=== PATIENT | female | born 1955 | race African-American/Black ===

== ENCOUNTER → 2017-01-25 | Outpatient (CLI) | payer OTHER ==
[2015-02-26 15:00] VITALS: BP 144/65
[~2017-01-25] MED LIST: ALBU0.63 NEB; AMIT25TA PO; AMLO2.5T PO; AMLO5TAB4 PO; Benicar; CALC0.256 PO; CHOL10002 PO; IRON18TA PO; LEVO175T2 PO; LOSA1TAB16 PO; METH4TAB2 PO; OMEP-203 PO; OXYC-323 PO; [UNRECOGNIZED DRUG - OTHER]
--- NOTE | 2017-01-25 13:20 | KCIC ---
Bone mineral density exam History: Postmenopausal, loss of height, renal disease Comparison: None Findings: Bone mineral density examination utilizing DEXA was performed. Left hip bone mineral density of 1.215 g/cm2 corresponds with a T score 2.2, Z score 2.1. The bone mineral density of the lumbar spine was 1.746 g/cm2 which corresponds with a T-score of 6.4, Z score 7.2 . By World Congress on Osteoporosis criteria, a T score of 0 to-1 SD is considered to be within normal limits. A T score of -1 to -2.5 SD is considered osteopenia. A T score less than -2.5 SD is considered osteoporosis Impression: 1. There is normal bone density of the left hip and lumbar spine. Electronically signed by: Giovanny Plaza MD (01/25/2017 1:17 PM) [facility]-KCIC[facility]
--- NOTE | 2017-01-29 10:21 | KCIC ---
History: Routine Screening. Technique: Bilateral digital mammographic routine views were obtained with CAD - computer aided detection. Previous: None. Findings: Breast Tissue Density B :The breast tissue is composed of mixed fatty and fibroglandular tissue. There is an asymmetric density in the upper outer breasts bilaterally. There are no architectural distortion or suspicious microcalcifications. Recommendations: The patient should return for bilateral breast ultrasound. BI-RADS Category 0: Incomplete. Need additional imaging evaluation. The mammography staff will provide imaging followup orders and will contact the patient for followup. "Our facility is accredited by the [employer] Mammography Program." Electronically signed by: Victor Manuel Conner III, MD (01/29/2017 10:18 AM) [facility]
== END | disposition home or self-care (01) ==
LOC: KCIC DEXA 12:11
PROVIDERS: ATTEND Internal Medicine
DX: Z12.31 Encounter for screening mammogram for malignant neoplasm of breast (principal)
CPT/HCPCS: 77080; G0202; 77067

== ENCOUNTER 2017-04-19 15:48 | Inpatient (IN) | payer BC, OTHER ==
[~2017-04-19] VITALS: Ht 167.6 cm; Wt 110.2 kg
[2017-04-19] VITALS (7 sets, daily range): BP systolic 157–189; BP diastolic 69–94
[~2017-04-19 15:48] MED LIST changes: -LOSA1TAB16 PO; +LOSA1TAB19 PO
--- NOTE | 2017-04-19 15:54 | PHYS DOC ---
Past Medical History Past Medical History: Hypertension, Renal Disease, Seizure Past Surgical History: Cholecystectomy, Other Additional Past Surgical Histo: Thyroidectomy Alcohol Use: None Drug Use: None Adult General Chief Complaint Chief Complaint: seizure HPI HPI Patient is a 61 year old female who presents with seizure. According to daughter witnessed 5 minutes where her arms were flexed and her legs are straight and she was making gurgling noises. EMS arrived and noted she was postictal and not seizing and she states she is on antiseizure meds. She states her last seizure was 3 years ago. According to family she did not feel well earlier today but she states she feels completely fine now. She can't explain what didn't feel well earlier. Review of Systems Review of Systems Constitutional: Denies fever or chills [] Eyes: Denies change in visual acuity, redness, or eye pain [] HENT: Denies nasal congestion or sore throat [] Respiratory: Denies cough or shortness of breath [] Cardiovascular: No additional information not addressed in HPI [] GI: Denies abdominal pain, nausea, vomiting, bloody stools or diarrhea [] : Denies dysuria or hematuria [] Musculoskeletal: Denies back pain or joint pain [] Integument: Denies rash or skin lesions [] Neurologic: Denies headache, focal weakness or sensory changes [] Endocrine: Denies polyuria or polydipsia [] All other systems were reviewed and found to be within normal limits, except as documented in this note. Current Medications Current Medications Current Medications Medications (Trade) Dose Ordered Sig/Marlon Start Time Stop Time Status Last Admin Dose Admin Calcium Gluconate (Calcium Gluconate) 1,000 mg 1X ONCE 04/19/17 18:45 04/19/17 18:46 DC 04/19/17 18:44 1,000 MG Sodium Chloride 1,000 ml @ 1,000 mls/hr 1X ONCE 04/19/17 16:45 04/19/17 17:44 Cancel Allergies Allergies Allergies Coded Allergies Type Severity Reaction Last Updated Verified Penicillins Allergy Intermediate Hives 02/10/15 Yes cinnamon Allergy Intermediate 02/08/15 Yes hydrocodone Allergy Intermediate Hives 02/10/15 Yes Physical Exam Physical Exam Constitutional: Well developed, well nourished, no acute distress, non-toxic appearance. [] HENT: Normocephalic, atraumatic, bilateral external ears normal, oropharynx moist, no oral exudates, nose normal. [] Eyes: PERRLA, EOMI, conjunctiva normal, no discharge. [] Neck: Normal range of motion, no tenderness, supple, no stridor. [] Cardiovascular:Heart rate regular rhythm, no murmur [] Lungs & Thorax: Bilateral breath sounds clear to auscultation [] Abdomen: Bowel sounds normal, soft, no tenderness, no masses, no pulsatile masses. [] Skin: Warm, dry, no erythema, no rash. [] Back: No tenderness, no CVA tenderness. [] Extremities: No tenderness, no cyanosis, no clubbing, ROM intact, no edema. [] Neurologic: Alert and oriented X 3, normal motor function, normal sensory function, no focal deficits noted. [] Psychologic: Affect normal, judgement normal, mood normal. [] Current Patient Data Vital Signs Vital Signs Date Time Temp Pulse Resp B/P (MAP) Pulse Ox O2 Delivery O2 Flow Rate FiO2 04/19/17 15:48 98.2 99 20 166/76 (106) 93 Room Air 98.2 Lab Values Laboratory Tests Test 04/19/17 16:20 04/19/17 17:24 04/19/17 17:25 White Blood Count 13.4 x10^3/uL (4.0-11.0) H Red Blood Count 3.92 x10^6/uL (3.50-5.40) Hemoglobin 10.2 g/dL (12.0-15.5) L Hematocrit 32.1 % (36.0-47.0) L Mean Corpuscular Volume 82 fL (79-100) Mean Corpuscular Hemoglobin 26 pg (25-35) Mean Corpuscular Hemoglobin Concent 32 g/dL (31-37) Red Cell Distribution Width 15.1 % (11.5-14.5) H Platelet Count 314 x10^3/uL (140-400) Neutrophils (%) (Auto) 85 % (31-73) H Lymphocytes (%) (Auto) 10 % (24-48) L Monocytes (%) (Auto) 4 % (0-9) Eosinophils (%) (Auto) 1 % (0-3) Basophils (%) (Auto) 1 % (0-3) Neutrophils # (Auto) 11.4 x10^3uL (1.8-7.7) H Lymphocytes # (Auto) 1.3 x10^3/uL (1.0-4.8) Monocytes # (Auto) 0.6 x10^3/uL (0.0-1.1) Eosinophils # (Auto) 0.1 x10^3/uL (0.0-0.7) Basophils # (Auto) 0.1 x10^3/uL (0.0-0.2) Prothrombin Time 16.6 SEC (11.7-14.0) H Prothrombin Time INR 1.4 (0.8-1.1) H PTT 35 SEC (24-38) Sodium Level 140 mmol/L (136-145) Potassium Level 3.7 mmol/L (3.5-5.1) Chloride Level 99 mmol/L (98-107) Carbon Dioxide Level 21 mmol/L (21-32) Anion Gap 20 (6-14) H Blood Urea Nitrogen 31 mg/dL (7-20) H Creatinine 2.1 mg/dL (0.6-1.0) H Estimated GFR (Cockcroft-Gault) 28.9 Glucose Level 100 mg/dL (70-99) H Calcium Level < 5.0 mg/dL (8.5-10.1) *L < 5.0 mg/dL (8.5-10.1) *L Total Bilirubin 0.6 mg/dL (0.2-1.0) Direct Bilirubin 0.2 mg/dL (0.0-0.2) Aspartate Amino Transferase (AST) 130 U/L (15-37) H Alanine Aminotransferase (ALT) 78 U/L (14-59) H Alkaline Phosphatase 93 U/L (46-116) Total Protein 8.8 g/dL (6.4-8.2) H Albumin 3.1 g/dL (3.4-5.0) L Lactic Acid Level 2.3 mmol/L (0.4-2.0) H Laboratory Tests 04/19/17 16:20 Laboratory Tests 04/19/17 16:20 EKG EKG [] Radiology/Procedures Radiology/Procedures [facility] [address] [place] [address] IMAGING REPORT Signed PATIENT: EMEKA COOK: [id number] : 1955 LOCATION: ER AGE: 61 SEX: F EXAM STATUS: REG ER ORD. PHYSICIAN: KVNG GOODE MD REASON: new onset seizure PROCEDURE: CT HEAD WO CONTRAST CT Head W/O Contrast: History: WITNESSED SEIZURE X 5 MIN H/O SEIZURE PREV SENT NO CONTRAST Comparison: December 18, 2009 Axial images were obtained without contrast. There is considerable symmetrical intraparenchymal calcifications within the cerebellum and the cerebrum diffusely. This was seen previously and is unchanged. The valera and white matter appears normal and symmetrical in volume for the patients age. There is no mass effect, extraaxial fluid collections or hydrocephalus. There is no gross bleed. There is no focal loss of valera-white matter distinction to suggest acute ischemia, i.e. stroke. Impression: Considerable calcifications bilaterally seen previously. This could be secondary to a metabolic abnormality or prior toxic injury. A congenital abnormality is possible. This has progressed since the prior study. There is no acute findings. RS Compliance Statement: One or more of the following individualized dose reduction techniques were utilized for this examination: 1. Automated exposure control 2. Adjustment of the mA and/or kV according to patient size 3. Use of iterative reconstruction technique Electronically signed by: Bhumi Cueva III, MD (04/19/2017 6:39 PM) [facility] DICTATED and SIGNED BY: BHUMI CUEVA III, MD DATE: 04/19/17 1835 CC: KVNG GOODE MD; SALVADOR WAGONER MD ~ Impressions: Seizure Critical hypocalcemia Course & Med Decision Making Course & Med Decision Making Pertinent Labs and Imaging studies reviewed. (See chart for details) Patient has no complaints, calcium is less than 5. It is being replaced with 2 A of calcium gluconate. She she did receive 1 L normal saline secondary to her elevated lactic acid. She's being admitted the ICU for close monitoring and calcium replacement. Dr. Call excepts the patient. Dragon Disclaimer Dragon Disclaimer This electronic medical record was generated, in whole or in part, using a voice recognition dictation system. Departure Departure Impression: Primary Impression: Hypocalcemia Disposition: ADMITTED INPATIENT Admitting Physician: Ciro Call Condition: STABLE Referrals: SALVADOR WAGONER MD (PCP) KVNG GOODE MD Apr 19, 2017 15:54
[2017-04-19] MEDS ORDERED: IV NORMAL SALINE 1000ML BAG 1,000 ML IV ONE ×3 (16:00→16:45)
[2017-04-19 16:27] LABS: BASO # 0.1 x10^3/uL (0.0-0.2); BASO % 1 % (0-3); EOS % 1 % (0-3); HEMATOCRIT 32.1 % (36.0-47.0); HEMOGLOBIN 10.2 g/dL (12.0-15.5); LYMPH # 1.3 x10^3/uL (1.0-4.8); LYMPH % 10 % (24-48); MEAN CORPUSCULAR HEMOGLOBIN 26 pg (25-35); MEAN CORPUSCULAR HGB CONC 32 g/dL (31-37); MEAN CORPUSCULAR VOLUME 82 fL (79-100); MONO % 4 % (0-9); NEUT % 85 % (31-73); PLATELET COUNT 314 x10^3/uL (140-400); RED BLOOD COUNT 3.92 x10^6/uL (3.50-5.40); RED CELL DISTRIBUTION WIDTH 15.1 % (11.5-14.5); WHITE BLOOD COUNT 13.4 x10^3/uL (4.0-11.0)
[2017-04-19 16:35] LABS: INR 1.4 (0.8-1.1); PROTHROMBIN TIME PATIENT 16.6 SEC (11.7-14.0)
[2017-04-19 17:09] LABS: ALBUMIN 3.1 g/dL (3.4-5.0); ALK PHOS 93 U/L (46-116); ALT (SGPT) 78 U/L (14-59); ANION GAP 20 (6-14); AST (SGOT) 130 U/L (15-37); BLOOD UREA NITROGEN 31 mg/dL (7-20); CARBON DIOXIDE 21 mmol/L (21-32); CHLORIDE 99 mmol/L (98-107); CREATININE 2.1 mg/dL (0.6-1.0); DIRECT BILIRUBIN 0.2 mg/dL (0.0-0.2); GFR 28.9; GLUCOSE 100 mg/dL (70-99); POTASSIUM 3.7 mmol/L (3.5-5.1); SODIUM 140 mmol/L (136-145); TOTAL BILIRUBIN 0.6 mg/dL (0.2-1.0); TOTAL PROTEIN 8.8 g/dL (6.4-8.2)
[2017-04-19 17:15] LABS: CALCIUM < 5.0 mg/dL (8.5-10.1)
--- NOTE | 2017-04-19 18:43 | RAD ---
CT Head W/O Contrast: History: WITNESSED SEIZURE X 5 MIN H/O SEIZURE PREV SENT NO CONTRAST Comparison: December 18, 2009 Axial images were obtained without contrast. There is considerable symmetrical intraparenchymal calcifications within the cerebellum and the cerebrum diffusely. This was seen previously and is unchanged. The valera and white matter appears normal and symmetrical in volume for the patients age. There is no mass effect, extraaxial fluid collections or hydrocephalus. There is no gross bleed. There is no focal loss of valera-white matter distinction to suggest acute ischemia, i.e. stroke. Impression: Considerable calcifications bilaterally seen previously. This could be secondary to a metabolic abnormality or prior toxic injury. A congenital abnormality is possible. This has progressed since the prior study. There is no acute findings. PQRS Compliance Statement: One or more of the following individualized dose reduction techniques were utilized for this examination: 1. Automated exposure control 2. Adjustment of the mA and/or kV according to patient size 3. Use of iterative reconstruction technique Electronically signed by: Victor Manuel Conner III, MD (04/19/2017 6:39 PM) [facility]
[2017-04-19] MEDS ORDERED: CALCIUM GLUCONATE 1,000 MG/10 ML VIAL. IV ONE (18:45)
[2017-04-19] MEDS ORDERED: CALCIUM GLUCONATE 1,000 MG/10 ML VIAL. IVP ONE (18:45)
[2017-04-19] MEDS ORDERED: ONDANSETRON PF 4 MG/2 ML VIAL. IV PRN (19:30)
[2017-04-19] MEDS ORDERED: hydrALAZINE 20 MG/ML VIAL. IVP PRN ×2 (21:15)
[2017-04-20] VITALS (20 sets, daily range): BP systolic 134–189; BP diastolic 61–86
[2017-04-20 05:36] LABS: BASO % 0 % (0-3); EOS % 3 % (0-3); HEMOGLOBIN 10.1 g/dL (12.0-15.5); LYMPH # 1.4 x10^3/uL (1.0-4.8); LYMPH % 11 % (24-48); MEAN CORPUSCULAR HEMOGLOBIN 26 pg (25-35); MEAN CORPUSCULAR HGB CONC 33 g/dL (31-37); MEAN CORPUSCULAR VOLUME 80 fL (79-100); MONO % 7 % (0-9); NEUT % 80 % (31-73); PLATELET COUNT 302 x10^3/uL (140-400); RED BLOOD COUNT 3.86 x10^6/uL (3.50-5.40); RED CELL DISTRIBUTION WIDTH 14.7 % (11.5-14.5)
[2017-04-20 06:37] LABS: ALBUMIN 2.6 g/dL (3.4-5.0); ALBUMIN/GLOBULIN RATIO 0.5 (1.0-1.7); ALK PHOS 78 U/L (46-116); ALT (SGPT) 66 U/L (14-59); ANION GAP 15 (6-14); AST (SGOT) 89 U/L (15-37); BLOOD UREA NITROGEN 29 mg/dL (7-20); BUN/CREATININE RATIO 18 (6-20); CARBON DIOXIDE 23 mmol/L (21-32); CHLORIDE 104 mmol/L (98-107); CREATININE 1.6 mg/dL (0.6-1.0); GFR 39.5; GLUCOSE 95 mg/dL (70-99); MAGNESIUM 2.2 mg/dL (1.8-2.4); POTASSIUM 3.6 mmol/L (3.5-5.1); SODIUM 142 mmol/L (136-145); TOTAL BILIRUBIN 0.4 mg/dL (0.2-1.0); TOTAL PROTEIN 7.9 g/dL (6.4-8.2)
[2017-04-20 06:42] LABS: CALCIUM < 5.0 mg/dL (8.5-10.1)
[2017-04-20] MEDS ORDERED: INFLUENZA VAX SCREEN BY RX. MC PRN (06:45)
--- NOTE | 2017-04-20 08:36 | PDOC1 ---
JANEL PERALTA PHARMACOMETRICIAN 04/20/17 0836: HISTORY AND PHYSICAL Chief Complaint Chief Complaint This 61 year old female has been admitted with a chief complaint of recurrent seizure activity. She has a h/o seizures in the past and is currently not taking antiseizure medication. The last seizure was approximately 3 years ago. Her daughter witnessed the seizure and it lasted approximately five minutes. Arms were flexed, legs straight, and gurgling sounds was noted by the daughter. EMS was called and on arrival she was post-ictal. She was transported to the ED. Abnormal labs: WBC 13.14, Hgb 10.2, BUN 31, Cr 2.1, LA 2.3, Ca <5, AST 130, ALT78, and Alb 3.1. She has recieved 2 amps of Calcium gluconate since admission and her Ca this morning remains <5.0. Nephrology has been consulted. She is admitted to the ICU. Daughter reports hypocalcemia is chronic medical problem. She had hypocalcemia approx 5 years ago and required IV Ca replacement infusion. Problem List Problems Medical Problems: (1) Hypocalcemia Status: Acute Past Medical History Cardiovascular: HTN Pulmonary: Other CENTRAL NERVOUS SYSTEM: Seizure GI: GERD Heme/Onc: Anemia NOS (CKD ) Musculoskeletal: Osteoarthritis Renal/: Chronic renal insuff (CKD IV ) Endocrine: Hypothyroidism, Other (Vitamin D deficiency, hypocalcemia ) Past Surgical History Past Surgical History: Cholecystectomy, Other (thyoidectomy ) Past Family History Family History: Coronary Artery Disease Past Social History PSH , supportive family. No h/o tobacco, ETOH or illicit drugs Review of Symptoms Review of Symptoms A 14 point ROS was completed with the following noted as positive: per HPI Other systems reviewed and negative. Medications Medications reviewed and reconciled. Allergy Allergies Coded Allergies Type Severity Reaction Last Updated Verified Penicillins Allergy Intermediate Hives 02/10/15 Yes cinnamon Allergy Intermediate 02/08/15 Yes hydrocodone Allergy Intermediate Hives 02/10/15 Yes Physical Exam Physical Exam General appearance - alert,well appearing, and in no distress and oriented to person, place, and time Mental Status - alert, oriented to person, place, and time, affect appropriate to mood Head - normal Chest - clear to auscultation, no wheezes, rales or rhonchi, symmetric air entry Heart - S1 and S2 normal Abdomen - soft, nontender, nondistended, no masses or organomegaly Neurological - alert and oriented Musculoskeletal - no muscular tenderness noted Extremities - no pedal edema Skin - warm and dry VTE Prophylaxis Ordered VTE Prophylaxis Devices: Yes VTE Pharmacological Prophylaxi: No Assessment Labs Laboratory Tests Test 04/19/17 16:20 04/19/17 17:24 04/19/17 17:25 04/20/17 03:45 White Blood Count 13.4 x10^3/uL (4.0-11.0) 13.0 x10^3/uL (4.0-11.0) Red Blood Count 3.92 x10^6/uL (3.50-5.40) 3.86 x10^6/uL (3.50-5.40) Hemoglobin 10.2 g/dL (12.0-15.5) 10.1 g/dL (12.0-15.5) Hematocrit 32.1 % (36.0-47.0) 31.0 % (36.0-47.0) Mean Corpuscular Volume 82 fL (79-100) 80 fL (79-100) Mean Corpuscular Hemoglobin 26 pg (25-35) 26 pg (25-35) Mean Corpuscular Hemoglobin Concent 32 g/dL (31-37) 33 g/dL (31-37) Red Cell Distribution Width 15.1 % (11.5-14.5) 14.7 % (11.5-14.5) Platelet Count 314 x10^3/uL (140-400) 302 x10^3/uL (140-400) Neutrophils (%) (Auto) 85 % (31-73) 80 % (31-73) Lymphocytes (%) (Auto) 10 % (24-48) 11 % (24-48) Monocytes (%) (Auto) 4 % (0-9) 7 % (0-9) Eosinophils (%) (Auto) 1 % (0-3) 3 % (0-3) Basophils (%) (Auto) 1 % (0-3) 0 % (0-3) Neutrophils # (Auto) 11.4 x10^3uL (1.8-7.7) 10.4 x10^3uL (1.8-7.7) Lymphocytes # (Auto) 1.3 x10^3/uL (1.0-4.8) 1.4 x10^3/uL (1.0-4.8) Monocytes # (Auto) 0.6 x10^3/uL (0.0-1.1) 0.8 x10^3/uL (0.0-1.1) Eosinophils # (Auto) 0.1 x10^3/uL (0.0-0.7) 0.3 x10^3/uL (0.0-0.7) Basophils # (Auto) 0.1 x10^3/uL (0.0-0.2) 0.0 x10^3/uL (0.0-0.2) Prothrombin Time 16.6 SEC (11.7-14.0) Prothromb Time International Ratio 1.4 (0.8-1.1) Activated Partial Thromboplast Time 35 SEC (24-38) Sodium Level 140 mmol/L (136-145) Potassium Level 3.7 mmol/L (3.5-5.1) Chloride Level 99 mmol/L (98-107) Carbon Dioxide Level 21 mmol/L (21-32) Anion Gap 20 (6-14) Blood Urea Nitrogen 31 mg/dL (7-20) Creatinine 2.1 mg/dL (0.6-1.0) Estimated GFR (Cockcroft-Gault) 28.9 Glucose Level 100 mg/dL (70-99) Calcium Level < 5.0 mg/dL (8.5-10.1) < 5.0 mg/dL (8.5-10.1) Total Bilirubin 0.6 mg/dL (0.2-1.0) Direct Bilirubin 0.2 mg/dL (0.0-0.2) Aspartate Amino Transf (AST/SGOT) 130 U/L (15-37) Alanine Aminotransferase (ALT/SGPT) 78 U/L (14-59) Alkaline Phosphatase 93 U/L (46-116) Total Protein 8.8 g/dL (6.4-8.2) Albumin 3.1 g/dL (3.4-5.0) Lactic Acid Level 2.3 mmol/L (0.4-2.0) Test 04/20/17 04:30 Sodium Level 142 mmol/L (136-145) Potassium Level 3.6 mmol/L (3.5-5.1) Chloride Level 104 mmol/L (98-107) Carbon Dioxide Level 23 mmol/L (21-32) Anion Gap 15 (6-14) Blood Urea Nitrogen 29 mg/dL (7-20) Creatinine 1.6 mg/dL (0.6-1.0) Estimated GFR (Cockcroft-Gault) 39.5 BUN/Creatinine Ratio 18 (6-20) Glucose Level 95 mg/dL (70-99) Calcium Level < 5.0 mg/dL (8.5-10.1) Magnesium Level 2.2 mg/dL (1.8-2.4) Total Bilirubin 0.4 mg/dL (0.2-1.0) Aspartate Amino Transf (AST/SGOT) 89 U/L (15-37) Alanine Aminotransferase (ALT/SGPT) 66 U/L (14-59) Alkaline Phosphatase 78 U/L (46-116) Total Protein 7.9 g/dL (6.4-8.2) Albumin 2.6 g/dL (3.4-5.0) Albumin/Globulin Ratio 0.5 (1.0-1.7) Laboratory Tests Test 04/19/17 16:20 04/19/17 17:24 04/19/17 17:25 04/20/17 03:45 White Blood Count 13.4 x10^3/uL (4.0-11.0) 13.0 x10^3/uL (4.0-11.0) Red Blood Count 3.92 x10^6/uL (3.50-5.40) 3.86 x10^6/uL (3.50-5.40) Hemoglobin 10.2 g/dL (12.0-15.5) 10.1 g/dL (12.0-15.5) Hematocrit 32.1 % (36.0-47.0) 31.0 % (36.0-47.0) Mean Corpuscular Volume 82 fL (79-100) 80 fL (79-100) Mean Corpuscular Hemoglobin 26 pg (25-35) 26 pg (25-35) Mean Corpuscular Hemoglobin Concent 32 g/dL (31-37) 33 g/dL (31-37) Red Cell Distribution Width 15.1 % (11.5-14.5) 14.7 % (11.5-14.5) Platelet Count 314 x10^3/uL (140-400) 302 x10^3/uL (140-400) Neutrophils (%) (Auto) 85 % (31-73) 80 % (31-73) Lymphocytes (%) (Auto) 10 % (24-48) 11 % (24-48) Monocytes (%) (Auto) 4 % (0-9) 7 % (0-9) Eosinophils (%) (Auto) 1 % (0-3) 3 % (0-3) Basophils (%) (Auto) 1 % (0-3) 0 % (0-3) Neutrophils # (Auto) 11.4 x10^3uL (1.8-7.7) 10.4 x10^3uL (1.8-7.7) Lymphocytes # (Auto) 1.3 x10^3/uL (1.0-4.8) 1.4 x10^3/uL (1.0-4.8) Monocytes # (Auto) 0.6 x10^3/uL (0.0-1.1) 0.8 x10^3/uL (0.0-1.1) Eosinophils # (Auto) 0.1 x10^3/uL (0.0-0.7) 0.3 x10^3/uL (0.0-0.7) Basophils # (Auto) 0.1 x10^3/uL (0.0-0.2) 0.0 x10^3/uL (0.0-0.2) Prothrombin Time 16.6 SEC (11.7-14.0) Prothromb Time International Ratio 1.4 (0.8-1.1) Activated Partial Thromboplast Time 35 SEC (24-38) Sodium Level 140 mmol/L (136-145) Potassium Level 3.7 mmol/L (3.5-5.1) Chloride Level 99 mmol/L (98-107) Carbon Dioxide Level 21 mmol/L (21-32) Anion Gap 20 (6-14) Blood Urea Nitrogen 31 mg/dL (7-20) Creatinine 2.1 mg/dL (0.6-1.0) Estimated GFR (Cockcroft-Gault) 28.9 Glucose Level 100 mg/dL (70-99) Calcium Level < 5.0 mg/dL (8.5-10.1) < 5.0 mg/dL (8.5-10.1) Total Bilirubin 0.6 mg/dL (0.2-1.0) Direct Bilirubin 0.2 mg/dL (0.0-0.2) Aspartate Amino Transf (AST/SGOT) 130 U/L (15-37) Alanine Aminotransferase (ALT/SGPT) 78 U/L (14-59) Alkaline Phosphatase 93 U/L (46-116) Total Protein 8.8 g/dL (6.4-8.2) Albumin 3.1 g/dL (3.4-5.0) Lactic Acid Level 2.3 mmol/L (0.4-2.0) Test 04/20/17 04:30 Sodium Level 142 mmol/L (136-145) Potassium Level 3.6 mmol/L (3.5-5.1) Chloride Level 104 mmol/L (98-107) Carbon Dioxide Level 23 mmol/L (21-32) Anion Gap 15 (6-14) Blood Urea Nitrogen 29 mg/dL (7-20) Creatinine 1.6 mg/dL (0.6-1.0) Estimated GFR (Cockcroft-Gault) 39.5 BUN/Creatinine Ratio 18 (6-20) Glucose Level 95 mg/dL (70-99) Calcium Level < 5.0 mg/dL (8.5-10.1) Magnesium Level 2.2 mg/dL (1.8-2.4) Total Bilirubin 0.4 mg/dL (0.2-1.0) Aspartate Amino Transf (AST/SGOT) 89 U/L (15-37) Alanine Aminotransferase (ALT/SGPT) 66 U/L (14-59) Alkaline Phosphatase 78 U/L (46-116) Total Protein 7.9 g/dL (6.4-8.2) Albumin 2.6 g/dL (3.4-5.0) Albumin/Globulin Ratio 0.5 (1.0-1.7) Plan Plan FINAL DIAGNOSIS: 1. seizures recurrent 2. acute hypocalcemia with h/o chronic hypocalcemia 3. leukocytosis 4. anemia CKD 5. CKD IV 6. HTN 7. hypothyroid post thyroidectomy 8. GERD 9. moderate chronic PCL malnutrition 10. transaminitis 11. Vitamin D def PLAN: seizure - hypocalcemia - monitor hypocalcemia - Ca gluconate 2gm total last night - nephrology consulted - continues <5.0 - labs pending - hypothyroid with h/o thyroidectomy - Synthroid resume - check lab leukocytosis - check UA - Admit WBC 13.4 today 13.0 anemia - admit Hgb 10.2 today 10.1 CKD IV - Admit B/C 31/2.1 today 29/1.6 IVF in ED transaminitis - Abmit AST 130 today 89 Admit 78 today 66- improving For more details regarding further plans, please refer to the orders. CHRISTIAN MORGAN MD 04/20/17 1007: HISTORY AND PHYSICAL Plan Plan Patient says that hypocalcemia gets aggravated when she has diarrhea. She has myoclonus.Give one more dose of Calcium Gluconate. The patient was seen and examined by me. Chart reviewed and plan of care formulated. Discussed with, reviewed and agree with DONOR RECRUITMENT MANAGER's notes, plan of care and orders with modifications as necessary. For more details regarding further plans, please refer to the orders. JANEL PERALTA APRN Apr 20, 2017 08:36 CHRISTIAN MORGAN MD Apr 20, 2017 10:07
[2017-04-20] MEDS ORDERED: oxyCODONE/APAP 5/325 1 TAB TABLET PO PRN (08:45)
[2017-04-20] MEDS: LOSARTAN POTASSIUM 50 MG TABLET. PO SCH (09:00)
[2017-04-20] MEDS: LEVOTHYROXINE 175 MCG TABLET PO SCH (09:00)
[2017-04-20] MEDS ORDERED: FLU VACC QS2017-18 (36MOS+)/PF 0.5 ML SYRINGE. VAX IM ONE (09:00)
[2017-04-20] MEDS: CHOLECALCIFEROL (VITAMIN D3) 1,000 UNIT TABLET PO SCH (09:00)
[2017-04-20] MEDS: CALCITRIOL 0.25 MCG CAPSULE. PO SCH ×2 (09:00→21:00)
[2017-04-20] MEDS: hydroCHLOROthiazide 12.5 MG CAPSULE PO SCH (09:00)
[2017-04-20] MEDS: PANTOPRAZOLE 40 MG TABLET.DR. PO SCH (09:00)
[2017-04-20] MEDS: ALBUTEROL SULFATE 2.5 MG/3 ML NEBU. NEB SCH ×2 (09:00→12:22)
[2017-04-20] MEDS: amLODIPine BESYLATE 5 MG TABLET PO SCH (09:00)
--- NOTE | 2017-04-20 09:07 | EKG ---
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
[2017-04-20] MEDS ORDERED: CALCIUM GLUCONATE 100 MG/ML VIAL for DOSE IN MG. IV ONE (09:15)
[2017-04-20 10:29] LABS: FREE T4 1.28 ng/dL (0.76-1.46)
[2017-04-20] MEDS ORDERED: CALCIUM GLUCONATE IV ONE (12:30)
[2017-04-20] MEDS ORDERED: DEXTROSE 5% IV ONE (12:30)
[2017-04-20] MEDS ORDERED: CALCIUM GLUCONATE 1,000 MG/10 ML VIAL. IVP ONE (12:30)
--- NOTE | 2017-04-20 13:22 | PDOC2 ---
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 Current Medications Sodium Chloride 1,000 ml @ 1,000 mls/hr 1X ONCE IV Last administered on 17:19; Start 04/19/17 at 16:00; Stop 04/19/17 at 16:59; Status DC Sodium Chloride 1,000 ml @ 1,000 mls/hr 1X ONCE IV ; Start 04/19/17 at 16:45; Stop 04/19/17 at 17:44; Status Cancel Sodium Chloride 1,000 ml @ 1,000 mls/hr 1X ONCE IV ; Start 04/19/17 at 16:45; Stop 04/19/17 at 17:44; Status Cancel Calcium Gluconate (Calcium Gluconate) 1,000 mg 1X ONCE IV Last administered on 04/19/17 19:27; Start 04/19/17 at 18:45; Stop 04/19/17 at 18:46; Status DC Calcium Gluconate (Calcium Gluconate) 1,000 mg 1X ONCE IVP Last administered on 04/19/17 18:44; Start 04/19/17 at 18:45; Stop 04/19/17 at 18:46; Status DC Ondansetron HCl (Zofran) 4 mg PRN Q8HRS PRN IV NAUSEA/VOMITING; Start 04/19/17 at 19:30; Stop 04/20/17 at 19:29 Hydralazine HCl (Apresoline Inj) 10 mg PRN Q4HRS PRN IVP ELEVATED BP, SEE COMMENTS; Start 04/19/17 at 21:15 Hydralazine HCl (Apresoline Inj) 20 mg PRN Q4HRS PRN IVP ELEVATED BP, SEE COMMENTS Last administered on 04/19/17 23:26; Start 04/19/17 at 21:15 Influenza Virus Vaccine Quadrival (Fluarix Quad [id number] Syringe) 0.5 ml ONCE ONCE VAX IM ; Start 04/20/17 at 09:00; Stop 04/20/17 at 09:01; Status DC Info (Do NOT chart on this placeholder) 1 each PRN 1X PRN MC SEE COMMENTS; Start 04/20/17 at 06:45; Status Cancel Amlodipine Besylate (Norvasc) 5 mg DAILY PO ; Start 04/20/17 at 09:00 Calcitriol (Rocaltrol) 0.25 mcg BID PO ; Start 04/20/17 at 09:00 Vitamin D (Vitamin D3) 1,000 unit DAILY PO ; Start 04/20/17 at 09:00 Levothyroxine Sodium (Synthroid) 175 mcg DAILYAC PO ; Start 04/20/17 at 09:00 Oxycodone/ Acetaminophen (Percocet 5/325) 1 tab PRN QID PRN PO PAIN; Start 04/20/17 at 08:45 Albuterol Sulfate (Ventolin Neb Soln) 2.5 mg RTQID NEB Last administered on 12:22; Start 04/20/17 at 09:00 Losartan Potassium (Cozaar) 50 mg DAILY PO ; Start 04/20/17 at 09:00 Pantoprazole Sodium (Protonix) 40 mg DAILYAC PO ; Start 04/20/17 at 09:00 Hydrochlorothiazide (Microzide) 12.5 mg DAILY PO ; Start 04/20/17 at 09:00 Calcium Gluconate (Calcium Gluconate) 1,000 mg 1X ONCE IV Last administered on 04/20/17 10:23; Start 04/20/17 at 09:15; Stop 04/20/17 at 09:16; Status DC Calcium Gluconate 09164 mg/Dextrose 1,100 ml @ 100 mls/hr Q11H ONCE IV Last administered on 04/20/17 13:14; Start 04/20/17 at 12:30; Stop 04/20/17 at 23:29 Calcium Gluconate (Calcium Gluconate) 2,000 mg 1X ONCE IVP Last administered on 04/20/17t 13:13; Start 04/20/17 at 12:30; Stop 04/20/17 at 12:31; Status DC Active Scripts Active Percocet 5-325 Mg Tablet (Oxycodone/Acetaminophen) 1 Each Tablet 1 Tab PO QID PRN Norvasc (Amlodipine Besylate) 5 Mg Tablet 5 Mg PO DAILY Reported Albuterol Sulfate Neb Soln (Albuterol Sulfate) 0.63 Mg/3 Ml Vial.neb 1 Vial NEB QID LAST DOSE GIVEN: DATE: Today TIME: 3:30 pm NEXT DOSE DUE: DATE: Today TIME: after 9:30pm [[facility]] [[facility]] Iron 18 Mg Tablet 18 Mg PO LAST DOSE GIVEN: DATE: dose of Ferrous Sulfate 142mg given today NEXT DOSE DUE: DATE: resume tomorrow Vitamin D (Cholecalciferol (Vitamin D3)) 1,000 Unit Tablet 1,000 Unit PO not given on this admission continue as previously instructed Omeprazole Magnesium 20 Mg Capsule.dr 20 Mg PO Substituted Protonix for this medication resume tomorrow as previously directed Rocaltrol (Calcitriol) 0.25 Mcg Capsule 0.25 Mcg PO BID LAST DOSE GIVEN: DATE: 02.26.2015 TIME: 08:30 am NEXT DOSE DUE: DATE: ton Losartan-Hctz 50-12.5 Mg Tab (Losartan/Hydrochlorothiazide) 1 Each Tablet 1 Each PO DAILY LAST DOSE GIVEN: this morning NEXT DOSE DUE: tomorrow morning Synthroid (Levothyroxine Sodium) 175 Mcg Tablet 175 Mcg PO DAILYAC LAST DOSE GIVEN: This am NEXT DOSE DUE: tomorrow morning Allergies Allergies: Coded Allergies: Penicillins (Verified Allergy, Intermediate, Hives, 02/10/15) cinnamon (Verified Allergy, Intermediate, 02/08/15) hydrocodone (Verified Allergy, Intermediate, Hives, 02/10/15) TAKES PERCOCET ROS Review of System GEN: no Fevers no Chills EYES: no new Visual Complaints ENT: no EN Drainage no Hearing deficiets CVS: no Orthopnea no CP RESP: no SOB no HUSSEIN GI: no Nausea no Vomiting + Diarrhea : no Dysuria no Urgency HEME: no easy bruising no Palp Ly Nodes NEURO no Focal Weakness + Sz + Tingling and numbness (in the past) PSYCH: no Suicidal Ideation no Depression SKIN: no Rashes ENDO: no Polyuria or Polydipsia o Hot/Cold Intolerance MU SK: occ Arthraigia min Myalgia after Sz Physical Exam Physical Exam General Appearance: Awake Alert Oriented x 3 In no Distress Eyes: VIsion Unchanged Conjunctiva Normal EN: No EN Drainage Mucous Memb. Neck: no JVD no JVP Supple no Thyromegaly CVS: S1 S2 ? Murmur No Gallop No Rub no Edema Resp: no Rales no Rhonchi no Acc. Muscle use GI: BS +ve NO Bruit Non Tender Non Distended : no CVA tenderness; on Suprapubic Tenderness SKIN: no Rashes Breast Exam deferred Mu.Sk: Adequate ROM no Muscle Atrophy Heme: Unable to palpate Obvious LAD no Splenomegaly NEURO: Good Strength and Tone Cranial Nerves II - XII grossly intact Psych: not Depressed no Active hallucination Vital Signs Vital Signs Date Time Temp Pulse Resp B/P (MAP) Pulse Ox O2 Delivery O2 Flow Rate FiO2 04/20/17 12:26 99 Room Air 04/20/17 06:00 70 19 148/69 (95) 04/20/17 04:00 98.6 98.6 Assessment & Plan CKD III - creat 1.7-2.0 at baseline. Current FLuid and E-lyte status does not necessitate emergent need for Dialysis. HypoCalcemia - not correcting with IV Mitchell boluses alone so will start gtt for now. restart Home meds and reval . Mag is OK HypoParathyroidism (presumably asso with Thyroidectomy) ^ed Lactic ACid - recheck Levels HypoALbuminemia - check for proteinruia Anemai - check [place], may need EPO too Discussed Plan of Care and prognosis etc. at length with family. Labs Labs Laboratory Tests Test 04/19/17 16:20 04/19/17 17:24 04/19/17 17:25 04/20/17 03:45 White Blood Count 13.4 x10^3/uL (4.0-11.0) 13.0 x10^3/uL (4.0-11.0) Red Blood Count 3.92 x10^6/uL (3.50-5.40) 3.86 x10^6/uL (3.50-5.40) Hemoglobin 10.2 g/dL (12.0-15.5) 10.1 g/dL (12.0-15.5) Hematocrit 32.1 % (36.0-47.0) 31.0 % (36.0-47.0) Mean Corpuscular Volume 82 fL (79-100) 80 fL (79-100) Mean Corpuscular Hemoglobin 26 pg (25-35) 26 pg (25-35) Mean Corpuscular Hemoglobin Concent 32 g/dL (31-37) 33 g/dL (31-37) Red Cell Distribution Width 15.1 % (11.5-14.5) 14.7 % (11.5-14.5) Platelet Count 314 x10^3/uL (140-400) 302 x10^3/uL (140-400) Neutrophils (%) (Auto) 85 % (31-73) 80 % (31-73) Lymphocytes (%) (Auto) 10 % (24-48) 11 % (24-48) Monocytes (%) (Auto) 4 % (0-9) 7 % (0-9) Eosinophils (%) (Auto) 1 % (0-3) 3 % (0-3) Basophils (%) (Auto) 1 % (0-3) 0 % (0-3) Neutrophils # (Auto) 11.4 x10^3uL (1.8-7.7) 10.4 x10^3uL (1.8-7.7) Lymphocytes # (Auto) 1.3 x10^3/uL (1.0-4.8) 1.4 x10^3/uL (1.0-4.8) Monocytes # (Auto) 0.6 x10^3/uL (0.0-1.1) 0.8 x10^3/uL (0.0-1.1) Eosinophils # (Auto) 0.1 x10^3/uL (0.0-0.7) 0.3 x10^3/uL (0.0-0.7) Basophils # (Auto) 0.1 x10^3/uL (0.0-0.2) 0.0 x10^3/uL (0.0-0.2) Prothrombin Time 16.6 SEC (11.7-14.0) Prothromb Time International Ratio 1.4 (0.8-1.1) Activated Partial Thromboplast Time 35 SEC (24-38) Sodium Level 140 mmol/L (136-145) Potassium Level 3.7 mmol/L (3.5-5.1) Chloride Level 99 mmol/L (98-107) Carbon Dioxide Level 21 mmol/L (21-32) Anion Gap 20 (6-14) Blood Urea Nitrogen 31 mg/dL (7-20) Creatinine 2.1 mg/dL (0.6-1.0) Estimated GFR (Cockcroft-Gault) 28.9 Glucose Level 100 mg/dL (70-99) Calcium Level < 5.0 mg/dL (8.5-10.1) < 5.0 mg/dL (8.5-10.1) Total Bilirubin 0.6 mg/dL (0.2-1.0) Direct Bilirubin 0.2 mg/dL (0.0-0.2) Aspartate Amino Transf (AST/SGOT) 130 U/L (15-37) Alanine Aminotransferase (ALT/SGPT) 78 U/L (14-59) Alkaline Phosphatase 93 U/L (46-116) Total Protein 8.8 g/dL (6.4-8.2) Albumin 3.1 g/dL (3.4-5.0) Lactic Acid Level 2.3 mmol/L (0.4-2.0) Test 04/20/17 04:30 04/20/17 08:50 Sodium Level 142 mmol/L (136-145) Potassium Level 3.6 mmol/L (3.5-5.1) Chloride Level 104 mmol/L (98-107) Carbon Dioxide Level 23 mmol/L (21-32) Anion Gap 15 (6-14) Blood Urea Nitrogen 29 mg/dL (7-20) Creatinine 1.6 mg/dL (0.6-1.0) Estimated GFR (Cockcroft-Gault) 39.5 BUN/Creatinine Ratio 18 (6-20) Glucose Level 95 mg/dL (70-99) Calcium Level < 5.0 mg/dL (8.5-10.1) Magnesium Level 2.2 mg/dL (1.8-2.4) Total Bilirubin 0.4 mg/dL (0.2-1.0) Aspartate Amino Transf (AST/SGOT) 89 U/L (15-37) Alanine Aminotransferase (ALT/SGPT) 66 U/L (14-59) Alkaline Phosphatase 78 U/L (46-116) Total Protein 7.9 g/dL (6.4-8.2) Albumin 2.6 g/dL (3.4-5.0) Albumin/Globulin Ratio 0.5 (1.0-1.7) Ionized Calcium 0.50 mmol/L (1.13-1.32) Thyroid Stimulating Hormone (TSH) 1.188 uIU/mL (0.358-3.74) Free Thyroxine 1.28 ng/dL (0.76-1.46) Laboratory Tests Test 04/19/17 16:20 04/19/17 17:24 04/19/17 17:25 04/20/17 03:45 White Blood Count 13.4 x10^3/uL (4.0-11.0) 13.0 x10^3/uL (4.0-11.0) Red Blood Count 3.92 x10^6/uL (3.50-5.40) 3.86 x10^6/uL (3.50-5.40) Hemoglobin 10.2 g/dL (12.0-15.5) 10.1 g/dL (12.0-15.5) Hematocrit 32.1 % (36.0-47.0) 31.0 % (36.0-47.0) Mean Corpuscular Volume 82 fL (79-100) 80 fL (79-100) Mean Corpuscular Hemoglobin 26 pg (25-35) 26 pg (25-35) Mean Corpuscular Hemoglobin Concent 32 g/dL (31-37) 33 g/dL (31-37) Red Cell Distribution Width 15.1 % (11.5-14.5) 14.7 % (11.5-14.5) Platelet Count 314 x10^3/uL (140-400) 302 x10^3/uL (140-400) Neutrophils (%) (Auto) 85 % (31-73) 80 % (31-73) Lymphocytes (%) (Auto) 10 % (24-48) 11 % (24-48) Monocytes (%) (Auto) 4 % (0-9) 7 % (0-9) Eosinophils (%) (Auto) 1 % (0-3) 3 % (0-3) Basophils (%) (Auto) 1 % (0-3) 0 % (0-3) Neutrophils # (Auto) 11.4 x10^3uL (1.8-7.7) 10.4 x10^3uL (1.8-7.7) Lymphocytes # (Auto) 1.3 x10^3/uL (1.0-4.8) 1.4 x10^3/uL (1.0-4.8) Monocytes # (Auto) 0.6 x10^3/uL (0.0-1.1) 0.8 x10^3/uL (0.0-1.1) Eosinophils # (Auto) 0.1 x10^3/uL (0.0-0.7) 0.3 x10^3/uL (0.0-0.7) Basophils # (Auto) 0.1 x10^3/uL (0.0-0.2) 0.0 x10^3/uL (0.0-0.2) Prothrombin Time 16.6 SEC (11.7-14.0) Prothromb Time International Ratio 1.4 (0.8-1.1) Activated Partial Thromboplast Time 35 SEC (24-38) Sodium Level 140 mmol/L (136-145) Potassium Level 3.7 mmol/L (3.5-5.1) Chloride Level 99 mmol/L (98-107) Carbon Dioxide Level 21 mmol/L (21-32) Anion Gap 20 (6-14) Blood Urea Nitrogen 31 mg/dL (7-20) Creatinine 2.1 mg/dL (0.6-1.0) Estimated GFR (Cockcroft-Gault) 28.9 Glucose Level 100 mg/dL (70-99) Calcium Level < 5.0 mg/dL (8.5-10.1) < 5.0 mg/dL (8.5-10.1) Total Bilirubin 0.6 mg/dL (0.2-1.0) Direct Bilirubin 0.2 mg/dL (0.0-0.2) Aspartate Amino Transf (AST/SGOT) 130 U/L (15-37) Alanine Aminotransferase (ALT/SGPT) 78 U/L (14-59) Alkaline Phosphatase 93 U/L (46-116) Total Protein 8.8 g/dL (6.4-8.2) Albumin 3.1 g/dL (3.4-5.0) Lactic Acid Level 2.3 mmol/L (0.4-2.0) Test 04/20/17 04:30 04/20/17 08:50 Sodium Level 142 mmol/L (136-145) Potassium Level 3.6 mmol/L (3.5-5.1) Chloride Level 104 mmol/L (98-107) Carbon Dioxide Level 23 mmol/L (21-32) Anion Gap 15 (6-14) Blood Urea Nitrogen 29 mg/dL (7-20) Creatinine 1.6 mg/dL (0.6-1.0) Estimated GFR (Cockcroft-Gault) 39.5 BUN/Creatinine Ratio 18 (6-20) Glucose Level 95 mg/dL (70-99) Calcium Level < 5.0 mg/dL (8.5-10.1) Magnesium Level 2.2 mg/dL (1.8-2.4) Total Bilirubin 0.4 mg/dL (0.2-1.0) Aspartate Amino Transf (AST/SGOT) 89 U/L (15-37) Alanine Aminotransferase (ALT/SGPT) 66 U/L (14-59) Alkaline Phosphatase 78 U/L (46-116) Total Protein 7.9 g/dL (6.4-8.2) Albumin 2.6 g/dL (3.4-5.0) Albumin/Globulin Ratio 0.5 (1.0-1.7) Ionized Calcium 0.50 mmol/L (1.13-1.32) Thyroid Stimulating Hormone (TSH) 1.188 uIU/mL (0.358-3.74) Free Thyroxine 1.28 ng/dL (0.76-1.46) SARY SIMPSON MD Apr 20, 2017 13:22
[2017-04-20] MEDS ORDERED: MAGNESIUM SULFATE 2GM 50 ML IV PRN (13:45)
[2017-04-20 18:59] LABS: IRON,SERUM 30 ug/dL (50-170)
[2017-04-20 19:18] LABS: % SAT IRON 9 % (15-34)
[2017-04-20] MEDS ORDERED: CALC0.25 PO ×3 (19:24)
[2017-04-20] MEDS ORDERED: LOSA50TA6 PO (19:27)
[2017-04-20] MEDS ORDERED: OMEP20TA63 PO (19:27)
[2017-04-20] MEDS ORDERED: OMEP40CA5 PO (19:27)
[2017-04-20] MEDS ORDERED: CHOL500016 PO (19:27)
[2017-04-20] MEDS ORDERED: SERT50TA PO (19:27)
[2017-04-20] MEDS ORDERED: CALCIUM CARBONATE 500 MG TAB.CHEW PO PRN (19:45)
--- NOTE | 2017-04-20 20:54 | CONS ---
DATE OF CONSULTATION: PRIMARY PHYSICIAN: Dr. Bhagat. REASON FOR CONSULTATION: Chronic kidney disease and electrolyte abnormalities. HISTORY OF PRESENT ILLNESS: The patient is a 61-year-old female who is known to have hypoparathyroidism longstanding; this was associated with her thyroidectomy. Her home medications as listed in EHR are not accurate and are being corrected. She claims she has been taking her medications on a regular basis, but every time she has diarrhea she tends to drop her calcium. She thinks she was not able to keep her medications down. She has been having some tingling and numbness in her fingertips for the last few days and eventually had a seizure yesterday and presented to the ER for further evaluation. In the Emergency Room, she was noted to have undetectable calcium at less than 5. She received IV calcium bolus 2 grams calcium gluconate and this has not helped. She received another gram of calcium gluconate and it has not helped. Hence, I put her on a calcium gluconate drip at this time. Her calcitriol from her home list of medications will be restarted. She claims she has been taking her meds on a regular basis, although I have my doubts about her compliance with the same. She does appear somewhat nonchalant about her medications; she voices ignorance about what is causing her low calcium also. I had an extensive discussion with the patient and family regarding her situation with hypoparathyroidism. I warned her that she will need to take her calcium supplements including vitamin D supplements on a regular basis on a daily basis and will need close monitoring of the same if she wants to prevent further seizures like the one she just had. She voiced understanding of the same and laughed it off. Despite diarrhea her magnesium was 2.2 this morning. She does have some minimal muscle soreness, but otherwise is feeling pretty good overall. Rest of the details, see electronic records. SARY SIMPSON MD DR: GIDEON/michelle JOB#: [id number] / [id number]
[2017-04-21] VITALS (14 sets, daily range): BP systolic 132–184; BP diastolic 52–94
[2017-04-21 02:12] LABS: PTH INTACT 6 pg/mL (15-65)
[2017-04-21 07:18] LABS: CALCIUM 7.4 mg/dL (8.5-10.1); CREATININE 1.5 mg/dL (0.6-1.0); GFR 42.6; POTASSIUM 4.3 mmol/L (3.5-5.1)
[2017-04-21 07:34] LABS: ALBUMIN 2.7 g/dL (3.4-5.0); PHOSPHORUS 6.8 mg/dL (2.6-4.7)
[2017-04-21] MEDS: LEVOTHYROXINE 175 MCG TABLET PO SCH (07:53)
[2017-04-21] MEDS: hydroCHLOROthiazide 12.5 MG CAPSULE PO SCH (08:32)
[2017-04-21] MEDS: PANTOPRAZOLE 40 MG TABLET.DR. PO SCH (08:32)
[2017-04-21] MEDS: LOSARTAN POTASSIUM 50 MG TABLET. PO SCH (08:32)
[2017-04-21] MEDS: CALCITRIOL 0.25 MCG CAPSULE. PO SCH ×3 (08:32→19:44)
[2017-04-21] MEDS: CHOLECALCIFEROL (VITAMIN D3) 1,000 UNIT TABLET PO SCH (08:33)
[2017-04-21] MEDS: amLODIPine BESYLATE 5 MG TABLET PO SCH (08:33)
[2017-04-21 09:19] LABS: BASO % 1 % (0-3); EOS % 4 % (0-3); HEMATOCRIT 34.4 % (36.0-47.0); LYMPH # 0.8 x10^3/uL (1.0-4.8); LYMPH % 10 % (24-48); MEAN CORPUSCULAR HEMOGLOBIN 26 pg (25-35); MEAN CORPUSCULAR HGB CONC 32 g/dL (31-37); MEAN CORPUSCULAR VOLUME 82 fL (79-100); MONO % 5 % (0-9); NEUT % 80 % (31-73); PLATELET COUNT 212 x10^3/uL (140-400); RED CELL DISTRIBUTION WIDTH 14.6 % (11.5-14.5); WHITE BLOOD COUNT 7.6 x10^3/uL (4.0-11.0)
--- NOTE | 2017-04-21 10:14 | PDOC ---
IM PROGRESS NOTES- Subjective Subjective No c/o pain,fever,seizures,spasms,cold cough,dysuria,diarrhea.Feeling better. Objective Vitals Vital Signs Date Time Temp Pulse Resp B/P (MAP) Pulse Ox O2 Delivery O2 Flow Rate FiO2 04/21/17 10:02 88 33 161/76 (104) Room Air 04/21/17 09:02 99 04/21/17 07:00 98.1 98.1 Input & Output Intake and Output 04/21/17 07:00 Intake Total 1660 ml Balance 1660 ml Intake Oral 560 ml IV Total 1100 ml # Voids 4 # Bowel Movements 1 Physical Exam Physical Exam General appearance - alert,well appearing, and in no distress and oriented to person, place, and time Mental Status - alert, oriented to person, place, and time, affect appropriate to mood Head - normal Chest - clear to auscultation, no wheezes, rales or rhonchi, symmetric air entry Heart - S1 and S2 normal Abdomen - soft, nontender, nondistended, no masses or organomegaly Neurological - alert and oriented Musculoskeletal - no muscular tenderness noted Extremities - no pedal edema Skin - warm and dry Labs Laboratory Tests Test 04/19/17 16:20 04/19/17 17:24 04/19/17 17:25 04/19/17 20:45 White Blood Count 13.4 x10^3/uL (4.0-11.0) Red Blood Count 3.92 x10^6/uL (3.50-5.40) Hemoglobin 10.2 g/dL (12.0-15.5) Hematocrit 32.1 % (36.0-47.0) Mean Corpuscular Volume 82 fL (79-100) Mean Corpuscular Hemoglobin 26 pg (25-35) Mean Corpuscular Hemoglobin Concent 32 g/dL (31-37) Red Cell Distribution Width 15.1 % (11.5-14.5) Platelet Count 314 x10^3/uL (140-400) Neutrophils (%) (Auto) 85 % (31-73) Lymphocytes (%) (Auto) 10 % (24-48) Monocytes (%) (Auto) 4 % (0-9) Eosinophils (%) (Auto) 1 % (0-3) Basophils (%) (Auto) 1 % (0-3) Neutrophils # (Auto) 11.4 x10^3uL (1.8-7.7) Lymphocytes # (Auto) 1.3 x10^3/uL (1.0-4.8) Monocytes # (Auto) 0.6 x10^3/uL (0.0-1.1) Eosinophils # (Auto) 0.1 x10^3/uL (0.0-0.7) Basophils # (Auto) 0.1 x10^3/uL (0.0-0.2) Prothrombin Time 16.6 SEC (11.7-14.0) Prothromb Time International Ratio 1.4 (0.8-1.1) Activated Partial Thromboplast Time 35 SEC (24-38) Sodium Level 140 mmol/L (136-145) Potassium Level 3.7 mmol/L (3.5-5.1) Chloride Level 99 mmol/L (98-107) Carbon Dioxide Level 21 mmol/L (21-32) Anion Gap 20 (6-14) Blood Urea Nitrogen 31 mg/dL (7-20) Creatinine 2.1 mg/dL (0.6-1.0) Estimated GFR (Cockcroft-Gault) 28.9 Glucose Level 100 mg/dL (70-99) Calcium Level < 5.0 mg/dL (8.5-10.1) < 5.0 mg/dL (8.5-10.1) Total Bilirubin 0.6 mg/dL (0.2-1.0) Direct Bilirubin 0.2 mg/dL (0.0-0.2) Aspartate Amino Transf (AST/SGOT) 130 U/L (15-37) Alanine Aminotransferase (ALT/SGPT) 78 U/L (14-59) Alkaline Phosphatase 93 U/L (46-116) Total Protein 8.8 g/dL (6.4-8.2) Albumin 3.1 g/dL (3.4-5.0) Lactic Acid Level 2.3 mmol/L (0.4-2.0) Nasal Screen MRSA (PCR) Negative (Negative) Test 04/20/17 03:45 04/20/17 04:30 04/20/17 08:50 04/20/17 18:17 White Blood Count 13.0 x10^3/uL (4.0-11.0) Red Blood Count 3.86 x10^6/uL (3.50-5.40) Hemoglobin 10.1 g/dL (12.0-15.5) Hematocrit 31.0 % (36.0-47.0) Mean Corpuscular Volume 80 fL (79-100) Mean Corpuscular Hemoglobin 26 pg (25-35) Mean Corpuscular Hemoglobin Concent 33 g/dL (31-37) Red Cell Distribution Width 14.7 % (11.5-14.5) Platelet Count 302 x10^3/uL (140-400) Neutrophils (%) (Auto) 80 % (31-73) Lymphocytes (%) (Auto) 11 % (24-48) Monocytes (%) (Auto) 7 % (0-9) Eosinophils (%) (Auto) 3 % (0-3) Basophils (%) (Auto) 0 % (0-3) Neutrophils # (Auto) 10.4 x10^3uL (1.8-7.7) Lymphocytes # (Auto) 1.4 x10^3/uL (1.0-4.8) Monocytes # (Auto) 0.8 x10^3/uL (0.0-1.1) Eosinophils # (Auto) 0.3 x10^3/uL (0.0-0.7) Basophils # (Auto) 0.0 x10^3/uL (0.0-0.2) Sodium Level 142 mmol/L (136-145) Potassium Level 3.6 mmol/L (3.5-5.1) Chloride Level 104 mmol/L (98-107) Carbon Dioxide Level 23 mmol/L (21-32) Anion Gap 15 (6-14) Blood Urea Nitrogen 29 mg/dL (7-20) Creatinine 1.6 mg/dL (0.6-1.0) Estimated GFR (Cockcroft-Gault) 39.5 BUN/Creatinine Ratio 18 (6-20) Glucose Level 95 mg/dL (70-99) Calcium Level < 5.0 mg/dL (8.5-10.1) 6.2 mg/dL (8.5-10.1) Magnesium Level 2.2 mg/dL (1.8-2.4) Total Bilirubin 0.4 mg/dL (0.2-1.0) Aspartate Amino Transf (AST/SGOT) 89 U/L (15-37) Alanine Aminotransferase (ALT/SGPT) 66 U/L (14-59) Alkaline Phosphatase 78 U/L (46-116) Total Protein 7.9 g/dL (6.4-8.2) Albumin 2.6 g/dL (3.4-5.0) Albumin/Globulin Ratio 0.5 (1.0-1.7) Estimated GFR (Non- 37 (>59) Ionized Calcium 0.50 mmol/L (1.13-1.32) EGFR 43 (>59) Thyroid Stimulating Hormone (TSH) 1.188 uIU/mL (0.358-3.74) Free Thyroxine 1.28 ng/dL (0.76-1.46) PTH (Intact) Specimen Description Comment (.) Parathyroid Hormone (Intact) 6 pg/mL (15-65) Calcium (PTH Intact) 4.4 mg/dL (8.7-10.3) Creatinine (PTH Intact) 1.49 mg/dL (0.57-1.00) Phosphorus (PTH Intact) 6.8 mg/dL (2.5-4.5) Reticulocyte Count (auto) 0.9 % (0.5-2.5) Lactic Acid Level 3.4 mmol/L (0.4-2.0) Iron Level 30 ug/dL (50-170) Total Iron Binding Capacity 338 ug/dL (250-450) Iron Saturation 9 % (15-34) Ferritin 207 ng/mL (8-252) Test 04/20/17 21:30 04/21/17 00:01 04/21/17 02:35 04/21/17 06:00 Calcium Level 7.0 mg/dL (8.5-10.1) 7.5 mg/dL (8.5-10.1) 7.7 mg/dL (8.5-10.1) 7.4 mg/dL (8.5-10.1) Lactic Acid Level 0.9 mmol/L (0.4-2.0) Sodium Level 142 mmol/L (136-145) Potassium Level 4.3 mmol/L (3.5-5.1) Chloride Level 103 mmol/L (98-107) Carbon Dioxide Level 27 mmol/L (21-32) Anion Gap 12 (6-14) Blood Urea Nitrogen 21 mg/dL (7-20) Creatinine 1.5 mg/dL (0.6-1.0) Estimated GFR (Cockcroft-Gault) 42.6 Glucose Level 114 mg/dL (70-99) Phosphorus Level 6.8 mg/dL (2.6-4.7) Magnesium Level 1.8 mg/dL (1.8-2.4) Albumin 2.7 g/dL (3.4-5.0) Test 04/21/17 08:30 04/21/17 09:50 White Blood Count 7.6 x10^3/uL (4.0-11.0) Red Blood Count 4.20 x10^6/uL (3.50-5.40) Hemoglobin 11.0 g/dL (12.0-15.5) Hematocrit 34.4 % (36.0-47.0) Mean Corpuscular Volume 82 fL (79-100) Mean Corpuscular Hemoglobin 26 pg (25-35) Mean Corpuscular Hemoglobin Concent 32 g/dL (31-37) Red Cell Distribution Width 14.6 % (11.5-14.5) Platelet Count 212 x10^3/uL (140-400) Neutrophils (%) (Auto) 80 % (31-73) Lymphocytes (%) (Auto) 10 % (24-48) Monocytes (%) (Auto) 5 % (0-9) Eosinophils (%) (Auto) 4 % (0-3) Basophils (%) (Auto) 1 % (0-3) Neutrophils # (Auto) 6.1 x10^3uL (1.8-7.7) Lymphocytes # (Auto) 0.8 x10^3/uL (1.0-4.8) Monocytes # (Auto) 0.3 x10^3/uL (0.0-1.1) Eosinophils # (Auto) 0.3 x10^3/uL (0.0-0.7) Basophils # (Auto) 0.0 x10^3/uL (0.0-0.2) Calcium Level 7.8 mg/dL (8.5-10.1) Laboratory Tests Test 04/20/17 18:17 04/20/17 21:30 04/21/17 00:01 04/21/17 02:35 Reticulocyte Count (auto) 0.9 % (0.5-2.5) Lactic Acid Level 3.4 mmol/L (0.4-2.0) 0.9 mmol/L (0.4-2.0) Calcium Level 6.2 mg/dL (8.5-10.1) 7.0 mg/dL (8.5-10.1) 7.5 mg/dL (8.5-10.1) 7.7 mg/dL (8.5-10.1) Iron Level 30 ug/dL (50-170) Total Iron Binding Capacity 338 ug/dL (250-450) Iron Saturation 9 % (15-34) Ferritin 207 ng/mL (8-252) Test 04/21/17 06:00 04/21/17 08:30 04/21/17 09:50 Sodium Level 142 mmol/L (136-145) Potassium Level 4.3 mmol/L (3.5-5.1) Chloride Level 103 mmol/L (98-107) Carbon Dioxide Level 27 mmol/L (21-32) Anion Gap 12 (6-14) Blood Urea Nitrogen 21 mg/dL (7-20) Creatinine 1.5 mg/dL (0.6-1.0) Estimated GFR (Cockcroft-Gault) 42.6 Glucose Level 114 mg/dL (70-99) Calcium Level 7.4 mg/dL (8.5-10.1) 7.8 mg/dL (8.5-10.1) Phosphorus Level 6.8 mg/dL (2.6-4.7) Magnesium Level 1.8 mg/dL (1.8-2.4) Albumin 2.7 g/dL (3.4-5.0) White Blood Count 7.6 x10^3/uL (4.0-11.0) Red Blood Count 4.20 x10^6/uL (3.50-5.40) Hemoglobin 11.0 g/dL (12.0-15.5) Hematocrit 34.4 % (36.0-47.0) Mean Corpuscular Volume 82 fL (79-100) Mean Corpuscular Hemoglobin 26 pg (25-35) Mean Corpuscular Hemoglobin Concent 32 g/dL (31-37) Red Cell Distribution Width 14.6 % (11.5-14.5) Platelet Count 212 x10^3/uL (140-400) Neutrophils (%) (Auto) 80 % (31-73) Lymphocytes (%) (Auto) 10 % (24-48) Monocytes (%) (Auto) 5 % (0-9) Eosinophils (%) (Auto) 4 % (0-3) Basophils (%) (Auto) 1 % (0-3) Neutrophils # (Auto) 6.1 x10^3uL (1.8-7.7) Lymphocytes # (Auto) 0.8 x10^3/uL (1.0-4.8) Monocytes # (Auto) 0.3 x10^3/uL (0.0-1.1) Eosinophils # (Auto) 0.3 x10^3/uL (0.0-0.7) Basophils # (Auto) 0.0 x10^3/uL (0.0-0.2) Meds Current Medications Albuterol Sulfate (Ventolin Neb Soln) 2.5 mg QIDPRN PRN NEB WHEEZING; Start at 12:00 Calcium Carbonate/ Glycine (Tums) 1,000 mg TIDBFRMEAL PRN PO INDIGESTION; Start 04/20/17 at 19:45 Calcium Gluconate (Calcium Gluconate) 2,000 mg 1X ONCE IVP Last administered on 04/20/17 13:13; Start 04/20/17 at 12:30; Stop 04/20/17 at 12:31; Status DC Calcium Gluconate 08240 mg/Dextrose 1,100 ml @ 100 mls/hr Q11H ONCE IV Last administered on 04/20/17 13:14; Start 04/20/17 at 12:30; Stop 04/20/17 at 23:29 ; Status DC Magnesium Sulfate/ Dextrose 50 ml @ 25 mls/hr PRN DAILY PRN IV for Mag < 1.7 on am labs; Start 04/20/17 at 13:45 Assessment Assessment seizure - hypocalcemia - monitor hypocalcemia - Ca gluconate 2gm total last night - nephrology consulted - continues <5.0 - labs pending - hypothyroid with h/o thyroidectomy - Synthroid resume - check lab leukocytosis - check UA - Admit WBC 13.4 today 13.0 anemia - admit Hgb 10.2 today 10.1 CKD IV - Admit B/C 31/2.1 today 29/1.6 IVF in ED transaminitis - Abmit AST 130 today 89 Admit 78 today 66- improving 12/3. Hypocalcemia- improving. Calcium 7. Leukocytosis- WBC 13k.? Reactive.Check u/a,CXR,ID consult. Transfer out of ICU. Monitor Calcium.Off IV Calcium Gluconate. Seizures- may have increased Lactic acid level- 3.3-0.9.IV fluids.Clinically not septic. Ct head - calcifications,? congenital. Plan Plan Patient says that hypocalcemia gets aggravated when she has diarrhea. She has myoclonus.Give one more dose of Calcium Gluconate. The patient was seen and examined by me. Chart reviewed and plan of care formulated. Discussed with, reviewed and agree with [employer]'s notes, plan of care and orders with modifications as necessary. For more details regarding further plans, please refer to the orders. CHRISTIAN MORGAN MD Apr 21, 2017 10:13
--- NOTE | 2017-04-21 10:46 | PDOC ---
SUBJECTIVE ROS HypoCalcemia Doign and feeling much better this am CVS: no Orthopnea, no CP RESP: no SOB, no HUSSEIN GI: no Nausea, no Vomiting; no diarrhea : no Dysuria, no Urgency OBJECTIVE Vital Signs Vital Signs Date Time Temp Pulse Resp B/P (MAP) Pulse Ox O2 Delivery O2 Flow Rate FiO2 04/21/17 10:02 88 33 161/76 (104) Room Air 04/21/17 09:02 99 04/21/17 07:00 98.1 98.1 I & 0 Intake and Output 04/21/17 07:00 Intake Total 1660 ml Balance 1660 ml Intake Oral 560 ml IV Total 1100 ml # Voids 4 # Bowel Movements 1 PHYSICAL EXAM Physical Exam General Appearance: Awake Alert Oriented x 3 In no Distress Eyes: VIsion Unchanged Conjunctiva Normal EN: No EN Drainage Mucous Memb. Neck: no JVD no JVP Supple no Thyromegaly CVS: S1 S2 ? Murmur No Gallop No Rub no Edema Resp: no Rales no Rhonchi no Acc. Muscle use GI: BS +ve NO Bruit Non Tender Non Distended : no CVA tenderness; on Suprapubic Tenderness Assessment & Plan CKD III - creat 1.7-2.0 at baseline. Current FLuid and E-lyte status does not necessitate emergent need for Dialysis. HypoCalcemia - corrected with IV Mitchell gtt for now. restart Home meds and reval . Changes as ordered. Mag is OK HypoParathyroidism (presumably asso with Thyroidectomy) - Ct Vit D and Calciferol as ordered ^ed Phos due to above - ^ed Lactic ACid - recheck Levels are WNL - so resolved - ? due to Sz HypoALbuminemia - check for proteinruia Anemia - IV [facility] ordered Discussed Plan of Care and prognosis etc. at length with family. COMMENT/RELEVANT DATA Meds Current Medications Medications (Trade) Dose Ordered Sig/Marlon Start Time Stop Time Status Last Admin Dose Admin Albuterol Sulfate (Ventolin Neb Soln) 2.5 mg QIDPRN PRN 04/21/17 12:00 Amlodipine Besylate (Norvasc) 5 mg DAILY 04/20/17 09:00 04/21/17 08:33 5 MG Calcitriol (Rocaltrol) 0.25 mcg BID 04/20/17 09:00 12/3/17 08:32 0.25 MCG Calcium Carbonate/ Glycine (Tums) 1,000 mg TIDBFRMEAL PRN 04/20/17 19:45 Calcium Gluconate (Calcium Gluconate) 2,000 mg 1X ONCE 04/20/17 12:30 04/20/17 12:31 DC 04/20/17 13:13 2,000 MG Calcium Gluconate 34590 mg/Dextrose 1,100 ml @ 100 mls/hr Q11H ONCE 04/20/17 12:30 04/20/17 23:29 DC 04/20/17 13:14 100 MLS/HR Hydralazine HCl (Apresoline Inj) 20 mg PRN Q4HRS PRN 04/19/17 21:15 04/19/17 23:26 20 MG Hydrochlorothiazide (Microzide) 12.5 mg DAILY 04/20/17 09:00 04/21/17 08:32 12.5 MG Influenza Virus Vaccine Quadrival (Fluarix Quad [id number] Syringe) 0.5 ml ONCE ONCE 04/20/17 09:00 04/20/17 09:01 DC Info (Do NOT chart on this placeholder) 1 each PRN 1X PRN 04/20/17 06:45 Cancel Levothyroxine Sodium (Synthroid) 175 mcg DAILYAC 04/20/17 09:00 04/21/17 07:53 175 MCG Losartan Potassium (Cozaar) 50 mg DAILY 04/20/17 09:00 04/21/17 08:32 50 MG Magnesium Sulfate/ Dextrose 50 ml @ 25 mls/hr PRN DAILY PRN 04/20/17 13:45 Ondansetron HCl (Zofran) 4 mg PRN Q8HRS PRN 04/19/17 19:30 04/20/17 19:29 DC Oxycodone/ Acetaminophen (Percocet 5/325) 1 tab PRN QID PRN 04/20/17 08:45 Pantoprazole Sodium (Protonix) 40 mg DAILYAC 04/20/17 09:00 04/21/17 08:32 40 MG Sodium Chloride 1,000 ml @ 1,000 mls/hr 1X ONCE 04/19/17 16:45 04/19/17 17:44 Cancel Vitamin D (Vitamin D3) 1,000 unit DAILY 04/20/17 09:00 04/21/17 08:33 1,000 UNIT Lab Laboratory Tests Test 04/20/17 18:17 04/20/17 21:30 04/21/17 00:01 04/21/17 02:35 Reticulocyte Count (auto) 0.9 % (0.5-2.5) Lactic Acid Level 3.4 mmol/L (0.4-2.0) 0.9 mmol/L (0.4-2.0) Calcium Level 6.2 mg/dL (8.5-10.1) 7.0 mg/dL (8.5-10.1) 7.5 mg/dL (8.5-10.1) 7.7 mg/dL (8.5-10.1) Iron Level 30 ug/dL (50-170) Total Iron Binding Capacity 338 ug/dL (250-450) Iron Saturation 9 % (15-34) Ferritin 207 ng/mL (8-252) Test 04/21/17 06:00 04/21/17 08:30 04/21/17 09:50 Sodium Level 142 mmol/L (136-145) Potassium Level 4.3 mmol/L (3.5-5.1) Chloride Level 103 mmol/L (98-107) Carbon Dioxide Level 27 mmol/L (21-32) Anion Gap 12 (6-14) Blood Urea Nitrogen 21 mg/dL (7-20) Creatinine 1.5 mg/dL (0.6-1.0) Estimated GFR (Cockcroft-Gault) 42.6 Glucose Level 114 mg/dL (70-99) Calcium Level 7.4 mg/dL (8.5-10.1) 7.8 mg/dL (8.5-10.1) Phosphorus Level 6.8 mg/dL (2.6-4.7) Magnesium Level 1.8 mg/dL (1.8-2.4) Albumin 2.7 g/dL (3.4-5.0) White Blood Count 7.6 x10^3/uL (4.0-11.0) Red Blood Count 4.20 x10^6/uL (3.50-5.40) Hemoglobin 11.0 g/dL (12.0-15.5) Hematocrit 34.4 % (36.0-47.0) Mean Corpuscular Volume 82 fL (79-100) Mean Corpuscular Hemoglobin 26 pg (25-35) Mean Corpuscular Hemoglobin Concent 32 g/dL (31-37) Red Cell Distribution Width 14.6 % (11.5-14.5) Platelet Count 212 x10^3/uL (140-400) Neutrophils (%) (Auto) 80 % (31-73) Lymphocytes (%) (Auto) 10 % (24-48) Monocytes (%) (Auto) 5 % (0-9) Eosinophils (%) (Auto) 4 % (0-3) Basophils (%) (Auto) 1 % (0-3) Neutrophils # (Auto) 6.1 x10^3uL (1.8-7.7) Lymphocytes # (Auto) 0.8 x10^3/uL (1.0-4.8) Monocytes # (Auto) 0.3 x10^3/uL (0.0-1.1) Eosinophils # (Auto) 0.3 x10^3/uL (0.0-0.7) Basophils # (Auto) 0.0 x10^3/uL (0.0-0.2) SARY SIMPSON MD Apr 21, 2017 10:46
[2017-04-21] MEDS ORDERED: MAGNESIUM SULFATE 2GM 50 ML IV PRN (11:00)
[2017-04-21] MEDS: hydroCHLOROthiazide 25 MG TABLET PO SCH (11:09)
[2017-04-21] MEDS: CALCIUM CARBONATE 500 MG TAB.CHEW PO SCH ×2 (11:10→16:54)
[2017-04-21 11:32] LABS: BILIRUBIN,URINE NEGATIVE (NEG); GLUCOSE,URINE NEGATIVE (NEG); NITRITE,URINE NEGATIVE (NEG); PH,URINE 5.5; PROTEIN,URINE 30 mg/dL (NEG-TRACE)
[2017-04-21 11:45] LABS: BACTERIA,URINE FEW /HPF (0-FEW); RBC,URINE 0 /HPF (0-2); WBC,URINE 0 /HPF (0-4)
[2017-04-21 11:46] LABS: SQUAMOUS EPITHELIAL CELL,UR MANY /LPF
--- NOTE | 2017-04-21 11:47 | RAD ---
RENAL COMPLETE BILATERAL Clinical Indication: CKD III Comparison: None. Technique: Transverse and longitudinal sonography of the kidneys and urinary bladder is performed. Findings: There is limited visualization of both kidneys. The right kidney measures approximately 10.2 x 4.0 x 4.7 cm. No definite hydronephrosis seen. The left kidney measures approximately 10.5 x 4.3 x 5.2 cm. No definite hydronephrosis seen. Evaluation for renal lesions is limited given poor visualization. Urinary bladder is mildly distended with anechoic appearing urine, grossly unremarkable. IMPRESSION: Limited visualization of the kidneys, without evidence of hydronephrosis.
--- NOTE | 2017-04-21 11:55 | RAD ---
CHEST AP ONLY Clinical Indication: leukocytosis Comparison: February 23, 2015 Technique: Portable upright AP view of the chest is obtained. Findings: A right upper extremity PICC line is seen with the distal tip appearing to terminate over the superior to mid SVC. No focal consolidation, pleural effusion or pneumothorax is seen. Cardiomediastinal silhouette is within normal limits of size. Aortic knob calcification redemonstrated. Visualized osseous structures and overlying soft tissues demonstrate no acute interval change. IMPRESSION: No focal consolidation to suggest pneumonia.
[2017-04-21] MEDS ORDERED: ALBUTEROL SULFATE 2.5 MG/3 ML NEBU. NEB PRN (12:00)
[2017-04-22 03:00] VITALS: BP 142/71
[2017-04-22] MEDS: LEVOTHYROXINE 175 MCG TABLET PO SCH (05:44)
[2017-04-22] MEDS: PANTOPRAZOLE 40 MG TABLET.DR. PO SCH (05:44)
[2017-04-22 06:05] LABS: BASO % 0 % (0-3); EOS % 4 % (0-3); HEMATOCRIT 30.5 % (36.0-47.0); HEMOGLOBIN 9.9 g/dL (12.0-15.5); LYMPH # 0.9 x10^3/uL (1.0-4.8); LYMPH % 10 % (24-48); MEAN CORPUSCULAR HEMOGLOBIN 26 pg (25-35); MEAN CORPUSCULAR HGB CONC 33 g/dL (31-37); MEAN CORPUSCULAR VOLUME 81 fL (79-100); MONO % 4 % (0-9); NEUT % 81 % (31-73); PLATELET COUNT 285 x10^3/uL (140-400); RED BLOOD COUNT 3.77 x10^6/uL (3.50-5.40); RED CELL DISTRIBUTION WIDTH 14.8 % (11.5-14.5); WHITE BLOOD COUNT 8.1 x10^3/uL (4.0-11.0)
[2017-04-22 06:28] LABS: ALBUMIN 2.6 g/dL (3.4-5.0); CALCIUM 6.8 mg/dL (8.5-10.1); CREATININE 1.7 mg/dL (0.6-1.0); GFR 36.8; MAGNESIUM 1.2 mg/dL (1.8-2.4); PHOSPHORUS 4.4 mg/dL (2.6-4.7); POTASSIUM 3.4 mmol/L (3.5-5.1)
[2017-04-22 07:00] VITALS: BP 129/73
[2017-04-22] MEDS: CHOLECALCIFEROL (VITAMIN D3) 1,000 UNIT TABLET PO SCH (08:35)
[2017-04-22] MEDS: CALCITRIOL 0.25 MCG CAPSULE. PO SCH ×3 (08:35→21:48)
[2017-04-22] MEDS: LOSARTAN POTASSIUM 50 MG TABLET. PO SCH (08:36)
[2017-04-22] MEDS: CALCIUM CARBONATE 500 MG TAB.CHEW PO SCH ×3 (08:36→21:48)
[2017-04-22] MEDS: amLODIPine BESYLATE 5 MG TABLET PO SCH (08:36)
[2017-04-22] MEDS: hydroCHLOROthiazide 25 MG TABLET PO SCH (08:43)
--- NOTE | 2017-04-22 08:54 | PDOC ---
PROGRESS NOTES Subjective Subjective feels better ,no more seizures Objective Objective Vital Signs Date Time Temp Pulse Resp B/P (MAP) Pulse Ox O2 Delivery O2 Flow Rate FiO2 04/22/17 08:36 113 129/73 04/22/17 03:00 99.5 18 93 Room Air 99.5 Intake and Output 04/22/17 06:59 Intake Total 120 ml Balance 120 ml Intake Oral 120 ml # Voids 2 # Bowel Movements 1 Physical Exam Abdomen: Normal bowel sounds, Soft Heart: Regular rate, Normal S1, Normal S2 Extremities: No clubbing General: Alert, Oriented X3 HEENT: Atraumatic Lungs: Clear to auscultation MUSCULOSKELETAL: No deformity, Osteoarthritic changes both hands Neck: Supple Neuro: Normal speech Psych/Mental Status: Mental status NL Skin: No breakdown Diagnosis Problem List Problems Medical Problems: (1) Hypocalcemia Status: Acute Assessment Assessment IMP: seizure - hypocalcemia - monitor hypocalcemia - Ca gluconate 2gm total last night - nephrology consulted - continues <5.0 - labs pending - hypothyroid with h/o thyroidectomy - Synthroid resume - check lab leukocytosis - check UA - Admit WBC 13.4 today 13.0 anemia - admit Hgb 10.2 today 10.1 CKD IV - Admit B/C 31/2.1 today 29/1.6 IVF in ED transaminitis - Abmit AST 130 today 89 Admit 78 today 66- improving PLAN: MRI brain neuro consult. not on seizure meds. renal consult appreciated lactic acidosis improving Problems: Plan Plan of Care Problems Medical Problems: (1) Hypocalcemia Status: Acute Comment Review of Relevant I have reviewed the following items jorge (where applicable) has been applied. Labs Laboratory Tests Test 04/21/17 09:50 04/21/17 11:00 04/21/17 15:40 04/21/17 18:00 Calcium Level 7.8 mg/dL (8.5-10.1) 7.1 mg/dL (8.5-10.1) 7.3 mg/dL (8.5-10.1) Urine Collection Type Unknown Urine Color Yellow Urine Clarity Clear Urine pH 5.5 Urine Specific Cubero 1.015 Urine Protein 30 mg/dL (NEG-TRACE) Urine Glucose (UA) Negative mg/dL (NEG) Urine Ketones (Stick) Negative mg/dL (NEG) Urine Blood Negative (NEG) Urine Nitrite Negative (NEG) Urine Bilirubin Negative (NEG) Urine Urobilinogen Dipstick 1.0 mg/dL (0.2 mg/dL) Urine Leukocyte Esterase Negative (NEG) Urine RBC 0 /HPF (0-2) Urine WBC 0 /HPF (0-4) Urine Squamous Epithelial Cells Many /LPF Urine Bacteria Few /HPF (0-FEW) Test 04/22/17 05:50 White Blood Count 8.1 x10^3/uL (4.0-11.0) Red Blood Count 3.77 x10^6/uL (3.50-5.40) Hemoglobin 9.9 g/dL (12.0-15.5) Hematocrit 30.5 % (36.0-47.0) Mean Corpuscular Volume 81 fL (79-100) Mean Corpuscular Hemoglobin 26 pg (25-35) Mean Corpuscular Hemoglobin Concent 33 g/dL (31-37) Red Cell Distribution Width 14.8 % (11.5-14.5) Platelet Count 285 x10^3/uL (140-400) Neutrophils (%) (Auto) 81 % (31-73) Lymphocytes (%) (Auto) 10 % (24-48) Monocytes (%) (Auto) 4 % (0-9) Eosinophils (%) (Auto) 4 % (0-3) Basophils (%) (Auto) 0 % (0-3) Neutrophils # (Auto) 6.6 x10^3uL (1.8-7.7) Lymphocytes # (Auto) 0.9 x10^3/uL (1.0-4.8) Monocytes # (Auto) 0.3 x10^3/uL (0.0-1.1) Eosinophils # (Auto) 0.4 x10^3/uL (0.0-0.7) Basophils # (Auto) 0.0 x10^3/uL (0.0-0.2) Sodium Level 139 mmol/L (136-145) Potassium Level 3.4 mmol/L (3.5-5.1) Chloride Level 101 mmol/L (98-107) Carbon Dioxide Level 28 mmol/L (21-32) Anion Gap 10 (6-14) Blood Urea Nitrogen 18 mg/dL (7-20) Creatinine 1.7 mg/dL (0.6-1.0) Estimated GFR (Cockcroft-Gault) 36.8 Glucose Level 105 mg/dL (70-99) Calcium Level 6.8 mg/dL (8.5-10.1) Phosphorus Level 4.4 mg/dL (2.6-4.7) Magnesium Level 1.2 mg/dL (1.8-2.4) Albumin 2.6 g/dL (3.4-5.0) Medications Current Medications Albuterol Sulfate (Ventolin Neb Soln) 2.5 mg QIDPRN PRN NEB WHEEZING; Start at 12:00 Calcitriol (Rocaltrol) 0.5 mcg TID PO Last administered on 04/22/17 08:35; Start 04/21/17 at 14:00 Calcium Carbonate/ Glycine (Tums) 2,000 mg TIDWMEALS PO Last administered on 08:36; Start 04/21/17 at 10:45 Hydrochlorothiazide (Hydrodiuril) 25 mg DAILY PO Last administered on 08:43; Start 04/21/17 at 11:00 Iron Sucrose 200 mg/Miscellaneous 20 ml @ 240 mls/hr 3X/WEEK IV ; Start at 09:00; Stop 05/01/17 at 09:04 Magnesium Sulfate/ Dextrose 50 ml @ 25 mls/hr PRN DAILY PRN IV for Mag < 1.7 on am labs; Start 04/21/17 at 11:00 Vitals/I & O Vital Sign - Last 24 Hours 04/21/17 04/21/17 04/21/17 04/21/17 09:02 10:02 11:05 15:00 Temp 97.9 97.9 97.9 97.9 Pulse 76 88 104 93 Resp 33 33 20 20 B/P (MAP) 154/82 (106) 161/76 (104) 162/70 (100) Pulse Ox 99 94 99 O2 Delivery Room Air Room Air Room Air Room Air 04/21/17 04/21/17 04/21/17 04/21/17 20:00 20:00 20:49 23:00 Temp 98.7 99.0 98.7 99.0 Pulse 99 99 114 Resp 18 18 B/P (MAP) 171/52 (91) 171/52 140/76 (97) Pulse Ox 95 97 O2 Delivery Room Air Room Air Room Air 04/22/17 04/22/17 04/22/17 03:00 08:36 08:36 Temp 99.5 99.5 Pulse 103 113 113 Resp 18 B/P (MAP) 142/71 (94) 129/73 129/73 Pulse Ox 93 O2 Delivery Room Air Intake and Output 04/21/17 04/21/17 04/22/17 14:59 22:59 06:59 Intake Total 120 ml Balance 120 ml SALVADOR WAGONER MD Apr 22, 2017 08:54
[2017-04-22] MEDS ORDERED: IRON SUCROSE COMPLEX 200 MG in TOTAL VOLUME SYRINGE 10 ML IV SCH (09:00)
[2017-04-22] MEDS ORDERED: POTASSIUM CHLORIDE 20 MEQ TABLET.ER. PO ONE (09:00)
[2017-04-22] MEDS ORDERED: MAGNESIUM SULFATE 2GM 50 ML IV ONE (09:00)
[2017-04-22 09:14] LABS: UR PROTEIN RD 32.6 mg/dL (Not Estab.)
[2017-04-22 11:00] VITALS: BP 131/69
[2017-04-22] MEDS ORDERED: GADOBUTROL 10 MMOL/10 ML VIAL IV ONE (12:00)
--- NOTE | 2017-04-22 14:04 | PDOC ---
SUBJECTIVE ROS HypoCalcemia and CKD III Doign well , no new complaints CVS: no Orthopnea, no CP RESP: no SOB, no HUSSEIN GI: no Nausea, no Vomiting : no Dysuria, no Urgency OBJECTIVE Vital Signs Vital Signs Date Time Temp Pulse Resp B/P (MAP) Pulse Ox O2 Delivery O2 Flow Rate FiO2 04/22/17 11:00 98.5 115 18 131/69 (89) 97 Room Air 98.5 I & 0 Intake and Output 04/22/17 07:00 Intake Total 120 ml Balance 120 ml Intake Oral 120 ml # Voids 2 # Bowel Movements 1 PHYSICAL EXAM Physical Exam General Appearance: Awake Alert Oriented x 3 In no Distress Eyes: VIsion Unchanged Conjunctiva Normal EN: No EN Drainage Mucous Memb. Neck: no JVD no JVP Supple no Thyromegaly CVS: S1 S2 ? Murmur No Gallop No Rub no Edema Resp: no Rales no Rhonchi no Acc. Muscle use GI: BS +ve NO Bruit Non Tender Non Distended : no CVA tenderness; on Suprapubic Tenderness Assessment & Plan CKD III - creat 1.7-2.0 at baseline. Current FLuid and E-lyte status does not necessitate emergent need for Dialysis. HypoCalcemia - corrected with IV Mitchell. restart Home meds and reval . Changes as ordered. Anticipate correction with Mag supplementation Low Mag - due to HCTZ - goes to show that she was probably not takingit at home. 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 Malnutirtion Anemia - IV Graves ordered Discussed Plan of Care and prognosis etc. at length with family. COMMENT/RELEVANT DATA Meds Current Medications Medications (Trade) Dose Ordered Sig/Marlon Start Time Stop Time Status Last Admin Dose Admin Albuterol Sulfate (Ventolin Neb Soln) 2.5 mg QIDPRN PRN 04/21/17 12:00 Amlodipine Besylate (Norvasc) 5 mg DAILY 04/20/17 09:00 04/22/17 08:36 5 MG Calcitriol (Rocaltrol) 0.5 mcg TID 04/21/17 14:00 04/22/17 13:47 0.5 MCG Calcium Carbonate/ Glycine (Tums) 2,000 mg TIDWMEALS 04/21/17 10:45 04/22/17 13:48 2,000 MG Calcium Gluconate (Calcium Gluconate) 2,000 mg 1X ONCE 04/20/17 12:30 04/20/17 12:31 DC 04/20/17 13:13 2,000 MG Calcium Gluconate 26787 mg/Dextrose 1,100 ml @ 100 mls/hr Q11H ONCE 04/20/17 12:30 04/20/17 23:29 DC 04/20/17 13:14 100 MLS/HR Gadobutrol (Gadavist) 10 mmol 1X ONCE 04/22/17 12:00 04/22/17 12:01 DC 04/22/17 12:11 10 MMOL Hydralazine HCl (Apresoline Inj) 20 mg PRN Q4HRS PRN 04/19/17 21:15 04/19/17 23:26 20 MG Hydrochlorothiazide (Hydrodiuril) 25 mg DAILY 04/21/17 11:00 04/22/17 08:43 25 MG Hydrochlorothiazide (Microzide) 12.5 mg DAILY 04/20/17 09:00 04/21/17 10:47 DC 04/21/17 08:32 12.5 MG Influenza Virus Vaccine Quadrival (Fluarix Quad [id number] Syringe) 0.5 ml ONCE ONCE 04/20/17 09:00 04/20/17 09:01 DC Info (Do NOT chart on this placeholder) 1 each PRN 1X PRN 04/20/17 06:45 Cancel Iron Sucrose 200 mg/Miscellaneous 20 ml @ 240 mls/hr 3X/WEEK 04/22/17 09:00 05/01/17 09:04 04/22/17 09:55 240 MLS/HR Levothyroxine Sodium (Synthroid) 175 mcg DAILYAC 04/20/17 09:00 04/22/17 05:44 175 MCG Losartan Potassium (Cozaar) 50 mg DAILY 04/20/17 09:00 04/22/17 08:36 50 MG Magnesium Sulfate/ Dextrose 50 ml @ 25 mls/hr 1X ONCE 04/22/17 09:00 04/22/17 10:59 DC 04/22/17 09:52 25 MLS/HR Ondansetron HCl (Zofran) 4 mg PRN Q8HRS PRN 04/19/17 19:30 04/20/17 19:29 DC Oxycodone/ Acetaminophen (Percocet 5/325) 1 tab PRN QID PRN 04/20/17 08:45 Pantoprazole Sodium (Protonix) 40 mg DAILYAC 04/20/17 09:00 04/22/17 05:44 40 MG Potassium Chloride (Klor-Con) 40 meq 1X ONCE 04/22/17 09:00 04/22/17 09:01 DC 04/22/17 09:49 40 MEQ Sodium Chloride 1,000 ml @ 1,000 mls/hr 1X ONCE 04/19/17 16:45 04/19/17 17:44 Cancel Vitamin D (Vitamin D3) 1,000 unit DAILY 04/20/17 09:00 04/22/17 08:35 1,000 UNIT Lab Laboratory Tests Test 04/21/17 15:40 04/21/17 18:00 04/22/17 05:50 Calcium Level 7.1 mg/dL (8.5-10.1) 7.3 mg/dL (8.5-10.1) 6.8 mg/dL (8.5-10.1) White Blood Count 8.1 x10^3/uL (4.0-11.0) Red Blood Count 3.77 x10^6/uL (3.50-5.40) Hemoglobin 9.9 g/dL (12.0-15.5) Hematocrit 30.5 % (36.0-47.0) Mean Corpuscular Volume 81 fL (79-100) Mean Corpuscular Hemoglobin 26 pg (25-35) Mean Corpuscular Hemoglobin Concent 33 g/dL (31-37) Red Cell Distribution Width 14.8 % (11.5-14.5) Platelet Count 285 x10^3/uL (140-400) Neutrophils (%) (Auto) 81 % (31-73) Lymphocytes (%) (Auto) 10 % (24-48) Monocytes (%) (Auto) 4 % (0-9) Eosinophils (%) (Auto) 4 % (0-3) Basophils (%) (Auto) 0 % (0-3) Neutrophils # (Auto) 6.6 x10^3uL (1.8-7.7) Lymphocytes # (Auto) 0.9 x10^3/uL (1.0-4.8) Monocytes # (Auto) 0.3 x10^3/uL (0.0-1.1) Eosinophils # (Auto) 0.4 x10^3/uL (0.0-0.7) Basophils # (Auto) 0.0 x10^3/uL (0.0-0.2) Sodium Level 139 mmol/L (136-145) Potassium Level 3.4 mmol/L (3.5-5.1) Chloride Level 101 mmol/L (98-107) Carbon Dioxide Level 28 mmol/L (21-32) Anion Gap 10 (6-14) Blood Urea Nitrogen 18 mg/dL (7-20) Creatinine 1.7 mg/dL (0.6-1.0) Estimated GFR (Cockcroft-Gault) 36.8 Glucose Level 105 mg/dL (70-99) Phosphorus Level 4.4 mg/dL (2.6-4.7) Magnesium Level 1.2 mg/dL (1.8-2.4) Albumin 2.6 g/dL (3.4-5.0) SARY SIMPSON MD Apr 22, 2017 14:04
[2017-04-22 15:00] VITALS: BP 103/63
--- NOTE | 2017-04-22 16:04 | RAD ---
MRI of the Brain without and with Contrast 04/22/2017 Clinical History: Recent seizures. Technique: Unenhanced T1-weighted sagittal and axial and FLAIR, T2-weighted, gradient echo and diffusion-weighted axial images of the brain were obtained. Additionally thin section FLAIR coronal images through the temporal lobes were obtained. After the intravenous administration of 10 cc of Gadavist, enhanced T1-weighted axial and coronal images of the brain were obtained. Findings: Comparison is made to the patient's CT scan of the head dated 04/19/2017. Images from the study are degraded by patient motion. There is generalized parenchymal atrophy. Extensive symmetric areas calcification are again seen involving cerebellum, basal ganglia regions white matter of both cerebral hemispheres, unchanged. Patchy and multiple small focal areas of abnormally increased signal intensity are seen within the periventricular and subcortical white matter of both cerebral hemispheres on the FLAIR and T2-weighted images consistent with areas of small vessel ischemic disease. No acute parenchymal abnormality is seen. No abnormal area of contrast enhancement is noted. No extra-axial fluid collection is seen. There is no MRI evidence of acute ischemia/infarction. Images through the temporal lobes are within normal limits. Mild mucosal thickening is seen scattered throughout the paranasal sinuses. There are minimal bilateral mastoid effusions. Normal flow voids are seen within the major vascular structures surrounding the brain parenchyma. Impression: No acute parenchymal abnormality is seen. Electronically signed by: Israel Richey MD (04/22/2017 4:01 PM) [id number]
--- NOTE | 2017-04-22 16:51 | PDOC2 ---
NEUROLOGY CONSULT Date of Admission Date of Admission DATE: 04/22/17 TIME: 16:42 Reason for Consult Reason for Consult: seizures Referring Physician Referring Physician: Dr. Bhagat Source Source: Chart review, Patient History of Present Illness History of Present Illness The patient is a 61-year-old right-handed female whom I have seen in the past regarding seizures related to hypocalcemia. I last saw her 7 years ago. She was admitted 2 days ago with a 5 minute seizure and indeed her calcium level was 6.2. There is no history of stroke or head injury. She feels fine now. Past Medical History Cardiovascular: HTN Pulmonary: Other (pleurisy) CENTRAL NERVOUS SYSTEM: Seizure (related to hypocalcemia) GI: GERD Musculoskeletal: low back pain Past Surgical History Past Surgical History: Cholecystectomy, Other (thyroidectomy) Family History Family History: Cancer Social History Social History Single, quit tobacco, no alcohol, retired Current Medications Current Medications Current Medications Sodium Chloride 1,000 ml @ 1,000 mls/hr 1X ONCE IV Last administered on 17:19; Start 04/19/17 at 16:00; Stop 04/19/17 at 16:59; Status DC Sodium Chloride 1,000 ml @ 1,000 mls/hr 1X ONCE IV ; Start 04/19/17 at 16:45; Stop 04/19/17 at 17:44; Status Cancel Sodium Chloride 1,000 ml @ 1,000 mls/hr 1X ONCE IV ; Start 04/19/17 at 16:45; Stop 04/19/17 at 17:44; Status Cancel Calcium Gluconate (Calcium Gluconate) 1,000 mg 1X ONCE IV Last administered on 04/19/17 19:27; Start 04/19/17 at 18:45; Stop 04/19/17 at 18:46; Status DC Calcium Gluconate (Calcium Gluconate) 1,000 mg 1X ONCE IVP Last administered on 04/19/17 18:44; Start 04/19/17 at 18:45; Stop 04/19/17 at 18:46; Status DC Ondansetron HCl (Zofran) 4 mg PRN Q8HRS PRN IV NAUSEA/VOMITING; Start 04/19/17 at 19:30; Stop 04/20/17 at 19:29; Status DC Hydralazine HCl (Apresoline Inj) 10 mg PRN Q4HRS PRN IVP ELEVATED BP, SEE COMMENTS Last administered on 04/21/17 20:49; Start 04/19/17 at 21:15 Hydralazine HCl (Apresoline Inj) 20 mg PRN Q4HRS PRN IVP ELEVATED BP, SEE COMMENTS Last administered on 04/19/17 23:26; Start 04/19/17 at 21:15 Influenza Virus Vaccine Quadrival (Fluarix Quad [id number] Syringe) 0.5 ml ONCE ONCE VAX IM ; Start 04/20/17 at 09:00; Stop 04/20/17 at 09:01; Status DC Info (Do NOT chart on this placeholder) 1 each PRN 1X PRN MC SEE COMMENTS; Start 04/20/17 at 06:45; Status Cancel Amlodipine Besylate (Norvasc) 5 mg DAILY PO Last administered on 04/22/17 08: 36; Start 04/20/17 at 09:00 Calcitriol (Rocaltrol) 0.25 mcg BID PO Last administered on 04/21/17 08:32; Start 04/20/17 at 09:00; Stop 04/21/17 at 10:47; Status DC Vitamin D (Vitamin D3) 1,000 unit DAILY PO Last administered on 04/22/17 08:35 ; Start 04/20/17 at 09:00 Levothyroxine Sodium (Synthroid) 175 mcg DAILYAC PO Last administered on 05:44; Start 04/20/17 at 09:00 Oxycodone/ Acetaminophen (Percocet 5/325) 1 tab PRN QID PRN PO PAIN; Start 04/20/17 at 08:45 Albuterol Sulfate (Ventolin Neb Soln) 2.5 mg RTQID NEB Last administered on 12:22; Start 04/20/17 at 09:00; Stop 04/20/17 at 14:16; Status DC Losartan Potassium (Cozaar) 50 mg DAILY PO Last administered on 04/22/17 08:36 ; Start 04/20/17 at 09:00 Pantoprazole Sodium (Protonix) 40 mg DAILYAC PO Last administered on 04/22/17 05:44; Start 04/20/17 at 09:00 Hydrochlorothiazide (Microzide) 12.5 mg DAILY PO Last administered on 08:32; Start 04/20/17 at 09:00; Stop 04/21/17 at 10:47; Status DC Calcium Gluconate (Calcium Gluconate) 1,000 mg 1X ONCE IV Last administered on 04/20/17 10:23; Start 04/20/17 at 09:15; Stop 04/20/17 at 09:16; Status DC Calcium Gluconate 92723 mg/Dextrose 1,100 ml @ 100 mls/hr Q11H ONCE IV Last administered on 04/20/17 13:14; Start 04/20/17 at 12:30; Stop 04/20/17 at 23:29 ; Status DC Calcium Gluconate (Calcium Gluconate) 2,000 mg 1X ONCE IVP Last administered on 04/20/17 13:13; Start 04/20/17 at 12:30; Stop 04/20/17 at 12:31; Status DC Magnesium Sulfate/ Dextrose 50 ml @ 25 mls/hr PRN DAILY PRN IV for Mag < 1.7 on am labs; Start 04/20/17 at 13:45; Stop 04/22/17 at 12:30; Status DC Albuterol Sulfate (Ventolin Neb Soln) 2.5 mg QIDPRN PRN NEB WHEEZING; Start at 12:00 Calcium Carbonate/ Glycine (Tums) 1,000 mg TIDBFRMEAL PRN PO INDIGESTION; Start 04/20/17 at 19:45; Stop 04/21/17 at 10:47; Status DC Calcitriol (Rocaltrol) 0.5 mcg TID PO Last administered on 04/22/17 13:47; Start 04/21/17 at 14:00 Calcium Carbonate/ Glycine (Tums) 2,000 mg TIDWMEALS PO Last administered on 13:48; Start 04/21/17 at 10:45; Stop 04/22/17 at 14:02; Status DC Hydrochlorothiazide (Hydrodiuril) 25 mg DAILY PO Last administered on 08:43; Start 04/21/17 at 11:00 Iron Sucrose 200 mg/Miscellaneous 20 ml @ 240 mls/hr 3X/WEEK IV Last administered on 04/22/17 09:55; Start 04/22/17 at 09:00; Stop 05/01/17 at 09: 04 Magnesium Sulfate/ Dextrose 50 ml @ 25 mls/hr PRN DAILY PRN IV for Mag < 1.7 on am labs; Start 04/21/17 at 11:00 Potassium Chloride (Klor-Con) 40 meq 1X ONCE PO Last administered on 09:49; Start 04/22/17 at 09:00; Stop 04/22/17 at 09:01; Status DC Magnesium Sulfate/ Dextrose 50 ml @ 25 mls/hr 1X ONCE IV Last administered on 04/22/17 09:52; Start 04/22/17 at 09:00; Stop 04/22/17 at 10:59; Status DC Gadobutrol (Gadavist) 10 mmol 1X ONCE IV Last administered on 04/22/17 12:11 ; Start 04/22/17 at 12:00; Stop 04/22/17 at 12:01; Status DC Magnesium Oxide (Magnesium Oxide) 400 mg BID PO ; Start 04/22/17 at 21:00 Calcium Carbonate/ Glycine (Tums) 2,000 mg TID PO ; Start 04/22/17 at 21:00 Active Scripts Active Percocet 5-325 Mg Tablet (Oxycodone/Acetaminophen) 1 Each Tablet 1 Tab PO QID PRN Norvasc (Amlodipine Besylate) 5 Mg Tablet 5 Mg PO DAILY Reported Losartan Potassium 50 Mg Tablet 50 Mg PO DAILY Vitamin D3 (Cholecalciferol (Vitamin D3)) 5,000 Unit Tablet 2 Tab PO BID Zoloft (Sertraline Hcl) 50 Mg Tablet 1 Tab PO DAILY Calcitriol 0.25 Mcg Capsule 3 Cap PO DAILYWSUP Calcitriol 0.25 Mcg Capsule 2 Cap PO DAILYWLUN Calcitriol 0.25 Mcg Capsule 2 Cap PO DAILYWBKFT Albuterol Sulfate Neb Soln (Albuterol Sulfate) 0.63 Mg/3 Ml Vial.neb 1 Vial NEB QID LAST DOSE GIVEN: DATE: Today TIME: 3:30 pm NEXT DOSE DUE: DATE: Today TIME: after 9:30pm [[facility]] [Benicar] Iron 18 Mg Tablet 18 Mg PO LAST DOSE GIVEN: DATE: dose of Ferrous Sulfate 142mg given today NEXT DOSE DUE: DATE: resume tomorrow Omeprazole Magnesium 20 Mg Capsule.dr 20 Mg PO Substituted Protonix for this medication resume tomorrow as previously directed Synthroid (Levothyroxine Sodium) 175 Mcg Tablet 175 Mcg PO DAILYAC LAST DOSE GIVEN: This am NEXT DOSE DUE: tomorrow morning Allergies Allergies: Coded Allergies: Penicillins (Verified Allergy, Intermediate, Hives, 02/10/15) cinnamon (Verified Allergy, Intermediate, 02/08/15) hydrocodone (Verified Allergy, Intermediate, Hives, 02/10/15) TAKES PERCOCET ROS Review of System Patient denies fevers, chills, weight loss, dyspnea, angina, abdominal pain, change in bowels, or dysuria. 14 point review of systems is negative. Physical Exam Physical Examination PHYSICAL EXAMINATION: Vital signs: see above. General appearance is normal and in no acute distress. HEENT: Normocephalic and nontraumatic. Eyes, nose, ears, and throat are unremarkable. Neck is supple. No lymphadenopathy. No bruits are heard over the carotid artery. No crepitus. NEUROLOGICAL EXAMINATION: Mental Status Examination: Alert. Oriented to time, place, and person. Answers questions and follows commends. Pupils are equal round and reactive to light and accommodation. Extraocular movements are intact. Visual field exam shows no defect on the direct confrontation. No motor or sensory deficits on the facial exam. Uvula in the midline and the soft palate elevated symmetrically. No deviation of the tongue to any direction. Gross hearing is normal. Shoulder shrug normal. Muscle tone is normal. Muscle strength is 5. Deep tendon reflexes are 2+ all around. Plantar reflex is with flexion response bilaterally. [id number] test performance is accurate. Tandem walk test is accurate. Alternative movements are accurate. Romberg test is negative. Gait is normal. Sensory exam shows no deficits. No cerebellar signs are elicited. Vitals VITALS Vital Signs Date Time Temp Pulse Resp B/P (MAP) Pulse Ox O2 Delivery O2 Flow Rate FiO2 04/22/17 15:00 97.8 103 18 103/63 (76) 96 Room Air 97.8 Labs Labs Laboratory Tests Test 04/20/17 18:17 04/20/17 21:30 04/21/17 00:01 04/21/17 02:35 Reticulocyte Count (auto) 0.9 % (0.5-2.5) Lactic Acid Level 3.4 mmol/L (0.4-2.0) 0.9 mmol/L (0.4-2.0) Calcium Level 6.2 mg/dL (8.5-10.1) 7.0 mg/dL (8.5-10.1) 7.5 mg/dL (8.5-10.1) 7.7 mg/dL (8.5-10.1) Iron Level 30 ug/dL (50-170) Total Iron Binding Capacity 338 ug/dL (250-450) Iron Saturation 9 % (15-34) Ferritin 207 ng/mL (8-252) Test 04/21/17 06:00 04/21/17 08:30 04/21/17 09:50 04/21/17 11:00 Sodium Level 142 mmol/L (136-145) Potassium Level 4.3 mmol/L (3.5-5.1) Chloride Level 103 mmol/L (98-107) Carbon Dioxide Level 27 mmol/L (21-32) Anion Gap 12 (6-14) Blood Urea Nitrogen 21 mg/dL (7-20) Creatinine 1.5 mg/dL (0.6-1.0) Estimated GFR (Cockcroft-Gault) 42.6 Glucose Level 114 mg/dL (70-99) Calcium Level 7.4 mg/dL (8.5-10.1) 7.8 mg/dL (8.5-10.1) Phosphorus Level 6.8 mg/dL (2.6-4.7) Magnesium Level 1.8 mg/dL (1.8-2.4) Albumin 2.7 g/dL (3.4-5.0) White Blood Count 7.6 x10^3/uL (4.0-11.0) Red Blood Count 4.20 x10^6/uL (3.50-5.40) Hemoglobin 11.0 g/dL (12.0-15.5) Hematocrit 34.4 % (36.0-47.0) Mean Corpuscular Volume 82 fL (79-100) Mean Corpuscular Hemoglobin 26 pg (25-35) Mean Corpuscular Hemoglobin Concent 32 g/dL (31-37) Red Cell Distribution Width 14.6 % (11.5-14.5) Platelet Count 212 x10^3/uL (140-400) Neutrophils (%) (Auto) 80 % (31-73) Lymphocytes (%) (Auto) 10 % (24-48) Monocytes (%) (Auto) 5 % (0-9) Eosinophils (%) (Auto) 4 % (0-3) Basophils (%) (Auto) 1 % (0-3) Neutrophils # (Auto) 6.1 x10^3uL (1.8-7.7) Lymphocytes # (Auto) 0.8 x10^3/uL (1.0-4.8) Monocytes # (Auto) 0.3 x10^3/uL (0.0-1.1) Eosinophils # (Auto) 0.3 x10^3/uL (0.0-0.7) Basophils # (Auto) 0.0 x10^3/uL (0.0-0.2) Urine Collection Type Unknown Urine Color Yellow Urine Clarity Clear Urine pH 5.5 Urine Specific [place] 1.015 Urine Protein 32.6 mg/dL (Not Estab.) Urine Glucose (UA) Negative mg/dL (NEG) Urine Ketones (Stick) Negative mg/dL (NEG) Urine Blood Negative (NEG) Urine Nitrite Negative (NEG) Urine Bilirubin Negative (NEG) Urine Urobilinogen Dipstick 1.0 mg/dL (0.2 mg/dL) Urine Leukocyte Esterase Negative (NEG) Urine RBC 0 /HPF (0-2) Urine WBC 0 /HPF (0-4) Urine Squamous Epithelial Cells Many /LPF Urine Bacteria Few /HPF (0-FEW) Urine Creatinine 75.0 mg/dL (Not Estab.) Urine Protein/Creatinine Ratio 435 mg/g creat (0-200) Test 04/21/17 15:40 04/21/17 18:00 04/22/17 05:50 Calcium Level 7.1 mg/dL (8.5-10.1) 7.3 mg/dL (8.5-10.1) 6.8 mg/dL (8.5-10.1) White Blood Count 8.1 x10^3/uL (4.0-11.0) Red Blood Count 3.77 x10^6/uL (3.50-5.40) Hemoglobin 9.9 g/dL (12.0-15.5) Hematocrit 30.5 % (36.0-47.0) Mean Corpuscular Volume 81 fL (79-100) Mean Corpuscular Hemoglobin 26 pg (25-35) Mean Corpuscular Hemoglobin Concent 33 g/dL (31-37) Red Cell Distribution Width 14.8 % (11.5-14.5) Platelet Count 285 x10^3/uL (140-400) Neutrophils (%) (Auto) 81 % (31-73) Lymphocytes (%) (Auto) 10 % (24-48) Monocytes (%) (Auto) 4 % (0-9) Eosinophils (%) (Auto) 4 % (0-3) Basophils (%) (Auto) 0 % (0-3) Neutrophils # (Auto) 6.6 x10^3uL (1.8-7.7) Lymphocytes # (Auto) 0.9 x10^3/uL (1.0-4.8) Monocytes # (Auto) 0.3 x10^3/uL (0.0-1.1) Eosinophils # (Auto) 0.4 x10^3/uL (0.0-0.7) Basophils # (Auto) 0.0 x10^3/uL (0.0-0.2) Sodium Level 139 mmol/L (136-145) Potassium Level 3.4 mmol/L (3.5-5.1) Chloride Level 101 mmol/L (98-107) Carbon Dioxide Level 28 mmol/L (21-32) Anion Gap 10 (6-14) Blood Urea Nitrogen 18 mg/dL (7-20) Creatinine 1.7 mg/dL (0.6-1.0) Estimated GFR (Cockcroft-Gault) 36.8 Glucose Level 105 mg/dL (70-99) Phosphorus Level 4.4 mg/dL (2.6-4.7) Magnesium Level 1.2 mg/dL (1.8-2.4) Albumin 2.6 g/dL (3.4-5.0) Laboratory Tests Test 04/21/17 18:00 04/22/17 05:50 Calcium Level 7.3 mg/dL (8.5-10.1) 6.8 mg/dL (8.5-10.1) White Blood Count 8.1 x10^3/uL (4.0-11.0) Red Blood Count 3.77 x10^6/uL (3.50-5.40) Hemoglobin 9.9 g/dL (12.0-15.5) Hematocrit 30.5 % (36.0-47.0) Mean Corpuscular Volume 81 fL (79-100) Mean Corpuscular Hemoglobin 26 pg (25-35) Mean Corpuscular Hemoglobin Concent 33 g/dL (31-37) Red Cell Distribution Width 14.8 % (11.5-14.5) Platelet Count 285 x10^3/uL (140-400) Neutrophils (%) (Auto) 81 % (31-73) Lymphocytes (%) (Auto) 10 % (24-48) Monocytes (%) (Auto) 4 % (0-9) Eosinophils (%) (Auto) 4 % (0-3) Basophils (%) (Auto) 0 % (0-3) Neutrophils # (Auto) 6.6 x10^3uL (1.8-7.7) Lymphocytes # (Auto) 0.9 x10^3/uL (1.0-4.8) Monocytes # (Auto) 0.3 x10^3/uL (0.0-1.1) Eosinophils # (Auto) 0.4 x10^3/uL (0.0-0.7) Basophils # (Auto) 0.0 x10^3/uL (0.0-0.2) Sodium Level 139 mmol/L (136-145) Potassium Level 3.4 mmol/L (3.5-5.1) Chloride Level 101 mmol/L (98-107) Carbon Dioxide Level 28 mmol/L (21-32) Anion Gap 10 (6-14) Blood Urea Nitrogen 18 mg/dL (7-20) Creatinine 1.7 mg/dL (0.6-1.0) Estimated GFR (Cockcroft-Gault) 36.8 Glucose Level 105 mg/dL (70-99) Phosphorus Level 4.4 mg/dL (2.6-4.7) Magnesium Level 1.2 mg/dL (1.8-2.4) Albumin 2.6 g/dL (3.4-5.0) Images Images MRI of the Brain without and with Contrast 04/22/2017 Clinical History: Recent seizures. Technique: Unenhanced T1-weighted sagittal and axial and FLAIR, T2-weighted, gradient echo and diffusion-weighted axial images of the brain were obtained. Additionally thin section FLAIR coronal images through the temporal lobes were obtained. After the intravenous administration of 10 cc of Gadavist, enhanced T1-weighted axial and coronal images of the brain were obtained. Findings: Comparison is made to the patient's CT scan of the head dated 04/19/2017. Images from the study are degraded by patient motion. There is generalized parenchymal atrophy. Extensive symmetric areas calcification are again seen involving cerebellum, basal ganglia regions white matter of both cerebral hemispheres, unchanged. Patchy and multiple small focal areas of abnormally increased signal intensity are seen within the periventricular and subcortical white matter of both cerebral hemispheres on the FLAIR and T2-weighted images consistent with areas of small vessel ischemic disease. No acute parenchymal abnormality is seen. No abnormal area of contrast enhancement is noted. No extra-axial fluid collection is seen. There is no MRI evidence of acute ischemia/infarction. Images through the temporal lobes are within normal limits. Mild mucosal thickening is seen scattered throughout the paranasal sinuses. There are minimal bilateral mastoid effusions. Normal flow voids are seen within the major vascular structures surrounding the brain parenchyma. Impression: No acute parenchymal abnormality is seen. Assessment/Plan Assessment/Plan Impression: This patient has had several seizures all related to hypocalcemia and workup has been negative in the past. This time her primary physician ordered an MRI which is again normal. I believe that I have done EEG studies on her in the past. Recommendations: Hold off on repeating EEG No need for anticonvulsants I did tell the patient under state law that she should not drive for 6 months, seizure-free, but she says that she does not drive much anyway Correction of hypocalcemia. Thank you for letting me help with the patient's care. DERIK ROSS MD Apr 22, 2017 16:51
[2017-04-22 19:00] VITALS: BP 133/79
[2017-04-22] MEDS: MAGNESIUM OXIDE 400 MG TABLET PO SCH (21:48)
[2017-04-22 23:00] VITALS: BP 121/73
[2017-04-23 02:50] VITALS: BP 123/80
[2017-04-23 06:32] LABS: BASO % 1 % (0-3); EOS % 6 % (0-3); HEMATOCRIT 29.3 % (36.0-47.0); HEMOGLOBIN 9.3 g/dL (12.0-15.5); LYMPH % 20 % (24-48); MEAN CORPUSCULAR HEMOGLOBIN 26 pg (25-35); MEAN CORPUSCULAR HGB CONC 32 g/dL (31-37); MEAN CORPUSCULAR VOLUME 82 fL (79-100); MONO % 5 % (0-9); NEUT % 68 % (31-73); PLATELET COUNT 211 x10^3/uL (140-400); RED BLOOD COUNT 3.56 x10^6/uL (3.50-5.40); RED CELL DISTRIBUTION WIDTH 15.1 % (11.5-14.5); WHITE BLOOD COUNT 5.1 x10^3/uL (4.0-11.0)
[2017-04-23 07:00] VITALS: BP 146/83
[2017-04-23 07:08] LABS: ALBUMIN 2.5 g/dL (3.4-5.0); CALCIUM 7.2 mg/dL (8.5-10.1); CREATININE 1.8 mg/dL (0.6-1.0); GFR 34.5; MAGNESIUM 1.5 mg/dL (1.8-2.4); POTASSIUM 3.3 mmol/L (3.5-5.1)
[2017-04-23] MEDS ORDERED: POTASSIUM CHLORIDE 20 MEQ TABLET.ER. PO ONE (08:15)
[2017-04-23] MEDS ORDERED: MAGNESIUM SULFATE 2GM 50 ML IV ONE (08:15)
[2017-04-23] MEDS: LEVOTHYROXINE 175 MCG TABLET PO SCH (08:51)
[2017-04-23] MEDS: MAGNESIUM OXIDE 400 MG TABLET PO SCH (08:51)
[2017-04-23] MEDS: amLODIPine BESYLATE 5 MG TABLET PO SCH (08:51)
[2017-04-23] MEDS: CHOLECALCIFEROL (VITAMIN D3) 1,000 UNIT TABLET PO SCH (08:51)
[2017-04-23] MEDS: hydroCHLOROthiazide 25 MG TABLET PO SCH (08:52)
[2017-04-23] MEDS: LOSARTAN POTASSIUM 50 MG TABLET. PO SCH (08:52)
[2017-04-23] MEDS: PANTOPRAZOLE 40 MG TABLET.DR. PO SCH (08:52)
--- NOTE | 2017-04-23 09:23 | PDOC ---
PROGRESS NOTES Subjective Subjective feels better ,anxious to go home Objective Objective Vital Signs Date Time Temp Pulse Resp B/P (MAP) Pulse Ox O2 Delivery O2 Flow Rate FiO2 04/23/17 08:52 92 146/83 04/23/17 08:00 Room Air 04/23/17 07:00 97.7 18 95 97.7 Intake and Output 04/23/17 07:00 Intake Total 200 ml Balance 200 ml Intake Oral 200 ml # Voids 3 Physical Exam Abdomen: Normal bowel sounds, Soft Heart: Regular rate, Normal S1, Normal S2 Extremities: No clubbing General: Alert, Oriented X3 HEENT: Atraumatic Lungs: Clear to auscultation MUSCULOSKELETAL: No deformity, Osteoarthritic changes both hands Neck: Supple Neuro: Normal speech Psych/Mental Status: Mental status NL Skin: No breakdown Diagnosis Problem List Problems Medical Problems: (1) Hypocalcemia Status: Acute Assessment Assessment IMP: seizure - hypocalcemia - monitor hypocalcemia - Ca gluconate 2gm total last night - nephrology consulted - continues <5.0 - labs pending - hypothyroid with h/o thyroidectomy - Synthroid resume - check lab leukocytosis - check UA - Admit WBC 13.4 today 13.0 anemia - admit Hgb 10.2 today 10.1 CKD IV - Admit B/C 31/2.1 today 29/1.6 IVF in ED transaminitis - Abmit AST 130 today 89 Admit 78 today 66- improving PLAN: home today. MRI brain neg neuro consult appreciated. no need to be on seizure meds. renal consult appreciated lactic acidosis improving Problems: Plan Plan of Care Problems Medical Problems: (1) Hypocalcemia Status: Acute Comment Review of Relevant I have reviewed the following items jorge (where applicable) has been applied. Labs Laboratory Tests Test 04/23/17 06:10 White Blood Count 5.1 x10^3/uL (4.0-11.0) Red Blood Count 3.56 x10^6/uL (3.50-5.40) Hemoglobin 9.3 g/dL (12.0-15.5) Hematocrit 29.3 % (36.0-47.0) Mean Corpuscular Volume 82 fL (79-100) Mean Corpuscular Hemoglobin 26 pg (25-35) Mean Corpuscular Hemoglobin Concent 32 g/dL (31-37) Red Cell Distribution Width 15.1 % (11.5-14.5) Platelet Count 211 x10^3/uL (140-400) Neutrophils (%) (Auto) 68 % (31-73) Lymphocytes (%) (Auto) 20 % (24-48) Monocytes (%) (Auto) 5 % (0-9) Eosinophils (%) (Auto) 6 % (0-3) Basophils (%) (Auto) 1 % (0-3) Neutrophils # (Auto) 3.5 x10^3uL (1.8-7.7) Lymphocytes # (Auto) 1.0 x10^3/uL (1.0-4.8) Monocytes # (Auto) 0.3 x10^3/uL (0.0-1.1) Eosinophils # (Auto) 0.3 x10^3/uL (0.0-0.7) Basophils # (Auto) 0.0 x10^3/uL (0.0-0.2) Sodium Level 142 mmol/L (136-145) Potassium Level 3.3 mmol/L (3.5-5.1) Chloride Level 105 mmol/L (98-107) Carbon Dioxide Level 30 mmol/L (21-32) Anion Gap 7 (6-14) Blood Urea Nitrogen 19 mg/dL (7-20) Creatinine 1.8 mg/dL (0.6-1.0) Estimated GFR (Cockcroft-Gault) 34.5 Glucose Level 101 mg/dL (70-99) Calcium Level 7.2 mg/dL (8.5-10.1) Phosphorus Level 4.0 mg/dL (2.6-4.7) Magnesium Level 1.5 mg/dL (1.8-2.4) Albumin 2.5 g/dL (3.4-5.0) Medications Current Medications Calcium Carbonate/ Glycine (Tums) 2,000 mg TID PO Last administered on 21:48; Start 04/22/17 at 21:00 Gadobutrol (Gadavist) 10 mmol 1X ONCE IV Last administered on 04/22/17 12:11 ; Start 04/22/17 at 12:00; Stop 04/22/17 at 12:01; Status DC Magnesium Oxide (Magnesium Oxide) 400 mg BID PO Last administered on 04/23/17 08:51; Start 04/22/17 at 21:00 Magnesium Sulfate/ Dextrose 50 ml @ 25 mls/hr 1X ONCE IV Last administered on 04/23/17 08:54; Start 04/23/17 at 08:15; Stop 04/23/17 at 10:14 Potassium Chloride (Klor-Con) 40 meq 1X ONCE PO Last administered on 08:53; Start 04/23/17 at 08:15; Stop 04/23/17 at 08:16; Status DC Vitals/I & O Vital Sign - Last 24 Hours 04/22/17 04/22/17 04/22/17 04/22/17 11:00 15:00 19:00 19:45 Temp 98.5 97.8 98.2 98.5 97.8 98.2 Pulse 115 103 113 Resp 18 18 18 B/P (MAP) 131/69 (89) 103/63 (76) 133/79 (97) Pulse Ox 97 96 98 O2 Delivery Room Air Room Air Room Air Room Air 04/22/17 04/23/17 04/23/17 04/23/17 23:00 02:50 07:00 08:00 Temp 98.5 98.7 97.7 98.5 98.7 97.7 Pulse 96 101 92 Resp 18 18 18 B/P (MAP) 121/73 (89) 123/80 (94) 146/83 (104) Pulse Ox 99 95 95 O2 Delivery Room Air Room Air Room Air Room Air 04/23/17 04/23/17 08:51 08:52 Pulse 92 92 B/P (MAP) 146/83 146/83 Intake and Output 04/22/17 04/22/17 04/23/17 15:00 23:00 07:00 Intake Total 200 ml Balance 200 ml SALVADOR WAGONER MD Apr 23, 2017 09:23
[2017-04-23] MEDS: CALCIUM CARBONATE 500 MG TAB.CHEW PO SCH ×2 (10:19→14:35)
[2017-04-23] MEDS: CALCITRIOL 0.25 MCG CAPSULE. PO SCH ×2 (10:20→14:35)
--- NOTE | 2017-04-23 10:21 | PDOC ---
PROGRESS NOTES Assessment Problems Medical Problems: (1) Hypocalcemia Status: Acute This patient has had several seizures all related to hypocalcemia and workup has been negative in the past. This time her primary physician ordered an MRI which is again normal. I believe that I have done EEG studies on her in the past. Plan Hold off on repeating EEG No need for anticonvulsants I did tell the patient under state law that she should not drive for 6 months, seizure-free, but she says that she does not drive much anyway Correction of hypocalcemia. Subjective No complaints Objective Vital Signs Date Time Temp Pulse Resp B/P (MAP) Pulse Ox O2 Delivery O2 Flow Rate FiO2 04/23/17 08:52 92 146/83 04/23/17 08:00 Room Air 04/23/17 07:00 97.7 18 95 97.7 Intake and Output 04/23/17 07:00 Intake Total 200 ml Balance 200 ml Intake Oral 200 ml # Voids 3 PHYSICAL EXAM Alert. Oriented to time, place and person. PERRL. EOMI. CN: no focal findings. Muscle tone: normal. Muscle strength: 5/5 DTR: 2+ Plantar reflex: flexor Gait: not examined in bed. Sensory exam: no abnormal findings. No cerebellar signs elicited. Review of Relevant I have reviewed the following items jorge (where applicable) has been applied. Labs Laboratory Tests Test 04/21/17 11:00 04/21/17 15:40 04/21/17 18:00 04/22/17 05:50 Urine Collection Type Unknown Urine Color Yellow Urine Clarity Clear Urine pH 5.5 Urine Specific [place] 1.015 Urine Protein 32.6 mg/dL (Not Estab.) Urine Glucose (UA) Negative mg/dL (NEG) Urine Ketones (Stick) Negative mg/dL (NEG) Urine Blood Negative (NEG) Urine Nitrite Negative (NEG) Urine Bilirubin Negative (NEG) Urine Urobilinogen Dipstick 1.0 mg/dL (0.2 mg/dL) Urine Leukocyte Esterase Negative (NEG) Urine RBC 0 /HPF (0-2) Urine WBC 0 /HPF (0-4) Urine Squamous Epithelial Cells Many /LPF Urine Bacteria Few /HPF (0-FEW) Urine Creatinine 75.0 mg/dL (Not Estab.) Urine Protein/Creatinine Ratio 435 mg/g creat (0-200) Calcium Level 7.1 mg/dL (8.5-10.1) 7.3 mg/dL (8.5-10.1) 6.8 mg/dL (8.5-10.1) White Blood Count 8.1 x10^3/uL (4.0-11.0) Red Blood Count 3.77 x10^6/uL (3.50-5.40) Hemoglobin 9.9 g/dL (12.0-15.5) Hematocrit 30.5 % (36.0-47.0) Mean Corpuscular Volume 81 fL (79-100) Mean Corpuscular Hemoglobin 26 pg (25-35) Mean Corpuscular Hemoglobin Concent 33 g/dL (31-37) Red Cell Distribution Width 14.8 % (11.5-14.5) Platelet Count 285 x10^3/uL (140-400) Neutrophils (%) (Auto) 81 % (31-73) Lymphocytes (%) (Auto) 10 % (24-48) Monocytes (%) (Auto) 4 % (0-9) Eosinophils (%) (Auto) 4 % (0-3) Basophils (%) (Auto) 0 % (0-3) Neutrophils # (Auto) 6.6 x10^3uL (1.8-7.7) Lymphocytes # (Auto) 0.9 x10^3/uL (1.0-4.8) Monocytes # (Auto) 0.3 x10^3/uL (0.0-1.1) Eosinophils # (Auto) 0.4 x10^3/uL (0.0-0.7) Basophils # (Auto) 0.0 x10^3/uL (0.0-0.2) Sodium Level 139 mmol/L (136-145) Potassium Level 3.4 mmol/L (3.5-5.1) Chloride Level 101 mmol/L (98-107) Carbon Dioxide Level 28 mmol/L (21-32) Anion Gap 10 (6-14) Blood Urea Nitrogen 18 mg/dL (7-20) Creatinine 1.7 mg/dL (0.6-1.0) Estimated GFR (Cockcroft-Gault) 36.8 Glucose Level 105 mg/dL (70-99) Phosphorus Level 4.4 mg/dL (2.6-4.7) Magnesium Level 1.2 mg/dL (1.8-2.4) Albumin 2.6 g/dL (3.4-5.0) Test 04/23/17 06:10 White Blood Count 5.1 x10^3/uL (4.0-11.0) Red Blood Count 3.56 x10^6/uL (3.50-5.40) Hemoglobin 9.3 g/dL (12.0-15.5) Hematocrit 29.3 % (36.0-47.0) Mean Corpuscular Volume 82 fL (79-100) Mean Corpuscular Hemoglobin 26 pg (25-35) Mean Corpuscular Hemoglobin Concent 32 g/dL (31-37) Red Cell Distribution Width 15.1 % (11.5-14.5) Platelet Count 211 x10^3/uL (140-400) Neutrophils (%) (Auto) 68 % (31-73) Lymphocytes (%) (Auto) 20 % (24-48) Monocytes (%) (Auto) 5 % (0-9) Eosinophils (%) (Auto) 6 % (0-3) Basophils (%) (Auto) 1 % (0-3) Neutrophils # (Auto) 3.5 x10^3uL (1.8-7.7) Lymphocytes # (Auto) 1.0 x10^3/uL (1.0-4.8) Monocytes # (Auto) 0.3 x10^3/uL (0.0-1.1) Eosinophils # (Auto) 0.3 x10^3/uL (0.0-0.7) Basophils # (Auto) 0.0 x10^3/uL (0.0-0.2) Sodium Level 142 mmol/L (136-145) Potassium Level 3.3 mmol/L (3.5-5.1) Chloride Level 105 mmol/L (98-107) Carbon Dioxide Level 30 mmol/L (21-32) Anion Gap 7 (6-14) Blood Urea Nitrogen 19 mg/dL (7-20) Creatinine 1.8 mg/dL (0.6-1.0) Estimated GFR (Cockcroft-Gault) 34.5 Glucose Level 101 mg/dL (70-99) Calcium Level 7.2 mg/dL (8.5-10.1) Phosphorus Level 4.0 mg/dL (2.6-4.7) Magnesium Level 1.5 mg/dL (1.8-2.4) Albumin 2.5 g/dL (3.4-5.0) Laboratory Tests Test 04/23/17 06:10 White Blood Count 5.1 x10^3/uL (4.0-11.0) Red Blood Count 3.56 x10^6/uL (3.50-5.40) Hemoglobin 9.3 g/dL (12.0-15.5) Hematocrit 29.3 % (36.0-47.0) Mean Corpuscular Volume 82 fL (79-100) Mean Corpuscular Hemoglobin 26 pg (25-35) Mean Corpuscular Hemoglobin Concent 32 g/dL (31-37) Red Cell Distribution Width 15.1 % (11.5-14.5) Platelet Count 211 x10^3/uL (140-400) Neutrophils (%) (Auto) 68 % (31-73) Lymphocytes (%) (Auto) 20 % (24-48) Monocytes (%) (Auto) 5 % (0-9) Eosinophils (%) (Auto) 6 % (0-3) Basophils (%) (Auto) 1 % (0-3) Neutrophils # (Auto) 3.5 x10^3uL (1.8-7.7) Lymphocytes # (Auto) 1.0 x10^3/uL (1.0-4.8) Monocytes # (Auto) 0.3 x10^3/uL (0.0-1.1) Eosinophils # (Auto) 0.3 x10^3/uL (0.0-0.7) Basophils # (Auto) 0.0 x10^3/uL (0.0-0.2) Sodium Level 142 mmol/L (136-145) Potassium Level 3.3 mmol/L (3.5-5.1) Chloride Level 105 mmol/L (98-107) Carbon Dioxide Level 30 mmol/L (21-32) Anion Gap 7 (6-14) Blood Urea Nitrogen 19 mg/dL (7-20) Creatinine 1.8 mg/dL (0.6-1.0) Estimated GFR (Cockcroft-Gault) 34.5 Glucose Level 101 mg/dL (70-99) Calcium Level 7.2 mg/dL (8.5-10.1) Phosphorus Level 4.0 mg/dL (2.6-4.7) Magnesium Level 1.5 mg/dL (1.8-2.4) Albumin 2.5 g/dL (3.4-5.0) Medications Current Medications Sodium Chloride 1,000 ml @ 1,000 mls/hr 1X ONCE IV Last administered on 17:19; Start 04/19/17 at 16:00; Stop 04/19/17 at 16:59; Status DC Sodium Chloride 1,000 ml @ 1,000 mls/hr 1X ONCE IV ; Start 04/19/17 at 16:45; Stop 04/19/17 at 17:44; Status Cancel Sodium Chloride 1,000 ml @ 1,000 mls/hr 1X ONCE IV ; Start 04/19/17 at 16:45; Stop 04/19/17 at 17:44; Status Cancel Calcium Gluconate (Calcium Gluconate) 1,000 mg 1X ONCE IV Last administered on 04/19/17 19:27; Start 04/19/17 at 18:45; Stop 04/19/17 at 18:46; Status DC Calcium Gluconate (Calcium Gluconate) 1,000 mg 1X ONCE IVP Last administered on 04/19/17 18:44; Start 04/19/17 at 18:45; Stop 04/19/17 at 18:46; Status DC Ondansetron HCl (Zofran) 4 mg PRN Q8HRS PRN IV NAUSEA/VOMITING; Start 04/19/17 at 19:30; Stop 04/20/17 at 19:29; Status DC Hydralazine HCl (Apresoline Inj) 10 mg PRN Q4HRS PRN IVP ELEVATED BP, SEE COMMENTS Last administered on 04/21/17 20:49; Start 04/19/17 at 21:15 Hydralazine HCl (Apresoline Inj) 20 mg PRN Q4HRS PRN IVP ELEVATED BP, SEE COMMENTS Last administered on 04/19/17 23:26; Start 04/19/17 at 21:15 Influenza Virus Vaccine Quadrival (Fluarix Quad [id number] Syringe) 0.5 ml ONCE ONCE VAX IM ; Start 04/20/17 at 09:00; Stop 04/20/17 at 09:01; Status DC Info (Do NOT chart on this placeholder) 1 each PRN 1X PRN MC SEE COMMENTS; Start 04/20/17 at 06:45; Status Cancel Amlodipine Besylate (Norvasc) 5 mg DAILY PO Last administered on 04/23/17 08: 51; Start 04/20/17 at 09:00 Calcitriol (Rocaltrol) 0.25 mcg BID PO Last administered on 04/21/17 08:32; Start 04/20/17 at 09:00; Stop 04/21/17 at 10:47; Status DC Vitamin D (Vitamin D3) 1,000 unit DAILY PO Last administered on 04/23/17 08:51 ; Start 04/20/17 at 09:00 Levothyroxine Sodium (Synthroid) 175 mcg DAILYAC PO Last administered on 08:51; Start 04/20/17 at 09:00 Oxycodone/ Acetaminophen (Percocet 5/325) 1 tab PRN QID PRN PO PAIN; Start 04/20/17 at 08:45 Albuterol Sulfate (Ventolin Neb Soln) 2.5 mg RTQID NEB Last administered on 12:22; Start 04/20/17 at 09:00; Stop 04/20/17 at 14:16; Status DC Losartan Potassium (Cozaar) 50 mg DAILY PO Last administered on 04/23/17 08:52 ; Start 04/20/17 at 09:00 Pantoprazole Sodium (Protonix) 40 mg DAILYAC PO Last administered on 04/23/17 08:52; Start 04/20/17 at 09:00 Hydrochlorothiazide (Microzide) 12.5 mg DAILY PO Last administered on 08:32; Start 04/20/17 at 09:00; Stop 04/21/17 at 10:47; Status DC Calcium Gluconate (Calcium Gluconate) 1,000 mg 1X ONCE IV Last administered on 04/20/17 10:23; Start 04/20/17 at 09:15; Stop 04/20/17 at 09:16; Status DC Calcium Gluconate 72566 mg/Dextrose 1,100 ml @ 100 mls/hr Q11H ONCE IV Last administered on 04/20/17 13:14; Start 04/20/17 at 12:30; Stop 04/20/17 at 23:29 ; Status DC Calcium Gluconate (Calcium Gluconate) 2,000 mg 1X ONCE IVP Last administered on 04/20/17 13:13; Start 04/20/17 at 12:30; Stop 04/20/17 at 12:31; Status DC Magnesium Sulfate/ Dextrose 50 ml @ 25 mls/hr PRN DAILY PRN IV for Mag < 1.7 on am labs; Start 04/20/17 at 13:45; Stop 04/22/17 at 12:30; Status DC Albuterol Sulfate (Ventolin Neb Soln) 2.5 mg QIDPRN PRN NEB WHEEZING; Start at 12:00 Calcium Carbonate/ Glycine (Tums) 1,000 mg TIDBFRMEAL PRN PO INDIGESTION; Start 04/20/17 at 19:45; Stop 04/21/17 at 10:47; Status DC Calcitriol (Rocaltrol) 0.5 mcg TID PO Last administered on 04/22/17 21:48; Start 04/21/17 at 14:00 Calcium Carbonate/ Glycine (Tums) 2,000 mg TIDWMEALS PO Last administered on 13:48; Start 04/21/17 at 10:45; Stop 04/22/17 at 14:02; Status DC Hydrochlorothiazide (Hydrodiuril) 25 mg DAILY PO Last administered on 08:52; Start 04/21/17 at 11:00 Iron Sucrose 200 mg/Miscellaneous 20 ml @ 240 mls/hr 3X/WEEK IV Last administered on 04/22/17 09:55; Start 04/22/17 at 09:00; Stop 05/01/17 at 09: 04 Magnesium Sulfate/ Dextrose 50 ml @ 25 mls/hr PRN DAILY PRN IV for Mag < 1.7 on am labs; Start 04/21/17 at 11:00 Potassium Chloride (Klor-Con) 40 meq 1X ONCE PO Last administered on 09:49; Start 04/22/17 at 09:00; Stop 04/22/17 at 09:01; Status DC Magnesium Sulfate/ Dextrose 50 ml @ 25 mls/hr 1X ONCE IV Last administered on 04/22/17 09:52; Start 04/22/17 at 09:00; Stop 04/22/17 at 10:59; Status DC Gadobutrol (Gadavist) 10 mmol 1X ONCE IV Last administered on 04/22/17 12:11 ; Start 04/22/17 at 12:00; Stop 04/22/17 at 12:01; Status DC Magnesium Oxide (Magnesium Oxide) 400 mg BID PO Last administered on 04/23/17 08:51; Start 04/22/17 at 21:00 Calcium Carbonate/ Glycine (Tums) 2,000 mg TID PO Last administered on 21:48; Start 04/22/17 at 21:00 Magnesium Sulfate/ Dextrose 50 ml @ 25 mls/hr 1X ONCE IV Last administered on 04/23/17 08:54; Start 04/23/17 at 08:15; Stop 04/23/17 at 10:14; Status DC Potassium Chloride (Klor-Con) 40 meq 1X ONCE PO Last administered on 08:53; Start 04/23/17 at 08:15; Stop 04/23/17 at 08:16; Status DC Active Scripts Active Percocet 5-325 Mg Tablet (Oxycodone/Acetaminophen) 1 Each Tablet 1 Tab PO QID PRN Norvasc (Amlodipine Besylate) 5 Mg Tablet 5 Mg PO DAILY Reported Losartan Potassium 50 Mg Tablet 50 Mg PO DAILY Vitamin D3 (Cholecalciferol (Vitamin D3)) 5,000 Unit Tablet 2 Tab PO BID Zoloft (Sertraline Hcl) 50 Mg Tablet 1 Tab PO DAILY Calcitriol 0.25 Mcg Capsule 3 Cap PO DAILYWSUP Calcitriol 0.25 Mcg Capsule 2 Cap PO DAILYWLUN Calcitriol 0.25 Mcg Capsule 2 Cap PO DAILYWBKFT Albuterol Sulfate Neb Soln (Albuterol Sulfate) 0.63 Mg/3 Ml Vial.neb 1 Vial NEB QID LAST DOSE GIVEN: DATE: Today TIME: 3:30 pm NEXT DOSE DUE: DATE: Today TIME: after 9:30pm [[facility]] [Benicar] Iron 18 Mg Tablet 18 Mg PO LAST DOSE GIVEN: DATE: dose of Ferrous Sulfate 142mg given today NEXT DOSE DUE: DATE: resume tomorrow Omeprazole Magnesium 20 Mg Capsule.dr 20 Mg PO Substituted Protonix for this medication resume tomorrow as previously directed Synthroid (Levothyroxine Sodium) 175 Mcg Tablet 175 Mcg PO DAILYAC LAST DOSE GIVEN: This am NEXT DOSE DUE: tomorrow morning Vitals/I & O Vital Sign - Last 24 Hours 04/22/17 04/22/17 04/22/17 04/22/17 11:00 15:00 19:00 19:45 Temp 98.5 97.8 98.2 98.5 97.8 98.2 Pulse 115 103 113 Resp 18 B/P (MAP) 131/69 (89) 103/63 (76) 133/79 (97) Pulse Ox 97 96 98 O2 Delivery Room Air Room Air Room Air Room Air 04/22/17 04/23/17 04/23/17 04/23/17 23:00 02:50 07:00 08:00 Temp 98.5 98.7 97.7 98.5 98.7 97.7 Pulse 96 101 92 Resp 18 B/P (MAP) 121/73 (89) 123/80 (94) 146/83 (104) Pulse Ox 99 95 95 O2 Delivery Room Air Room Air Room Air Room Air 04/23/17 04/23/17 08:51 08:52 Pulse 92 92 B/P (MAP) 146/83 146/83 Intake and Output 04/22/17 04/22/17 04/23/17 15:00 23:00 07:00 Intake Total 200 ml Balance 200 ml DERIK ROSS MD Apr 23, 2017 10:21
[2017-04-23 11:00] VITALS: BP 100/60
--- NOTE | 2017-04-23 12:08 | PDOC ---
SUBJECTIVE ROS Hypocalcemia - CKD III Dign well CVS: no Orthopnea, no CP RESP: no SOB, no HUSSEIN GI: no Nausea, no Vomiting : no Dysuria, no Urgency OBJECTIVE Vital Signs Vital Signs Date Time Temp Pulse Resp B/P (MAP) Pulse Ox O2 Delivery O2 Flow Rate FiO2 04/23/17 08:52 92 146/83 04/23/17 08:00 Room Air 04/23/17 07:00 97.7 18 95 97.7 I & 0 Intake and Output 04/23/17 07:00 Intake Total 200 ml Balance 200 ml Intake Oral 200 ml # Voids 3 PHYSICAL EXAM Physical Exam General Appearance: Awake Alert Oriented x 3 In no Distress Eyes: VIsion Unchanged Conjunctiva Normal EN: No EN Drainage Mucous Memb. Neck: no JVD no JVP Supple no Thyromegaly CVS: S1 S2 ? Murmur No Gallop No Rub no Edema Resp: no Rales no Rhonchi no Acc. Muscle use GI: BS +ve NO Bruit Non Tender Non Distended : no CVA tenderness; on Suprapubic Tenderness Assessment & Plan CKD III - creat 1.7-2.0 at baseline. Current FLuid and E-lyte status does not necessitate emergent need for Dialysis. HypoCalcemia - corrected with IV Mitchell. restart Home meds and reval . Changes as ordered. Anticipate correction with Mag supplementation Low Mag - due to HCTZ - goes to show that she was probably not taking it at home. 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 Malnutirtion Anemia - IV [place] ordered Discussed Plan of Care and prognosis etc. at length with pt and Dr Bhagat COMMENT/RELEVANT DATA Meds Current Medications Medications (Trade) Dose Ordered Sig/Marlon Start Time Stop Time Status Last Admin Dose Admin Albuterol Sulfate (Ventolin Neb Soln) 2.5 mg QIDPRN PRN 04/21/17 12:00 Amlodipine Besylate (Norvasc) 5 mg DAILY 04/20/17 09:00 04/23/17 08:51 5 MG Calcitriol (Rocaltrol) 0.5 mcg TID 04/21/17 14:00 04/23/17 10:20 0.5 MCG Calcium Carbonate/ Glycine (Tums) 2,000 mg TID 04/22/17 21:00 04/23/17 10:19 2,000 MG Calcium Gluconate (Calcium Gluconate) 2,000 mg 1X ONCE 04/20/17 12:30 04/20/17 12:31 DC 04/20/17 13:13 2,000 MG Calcium Gluconate 94596 mg/Dextrose 1,100 ml @ 100 mls/hr Q11H ONCE 04/20/17 12:30 04/20/17 23:29 DC 04/20/17 13:14 100 MLS/HR Gadobutrol (Gadavist) 10 mmol 1X ONCE 04/22/17 12:00 04/22/17 12:01 DC 04/22/17 12:11 10 MMOL Hydralazine HCl (Apresoline Inj) 20 mg PRN Q4HRS PRN 04/19/17 21:15 04/19/17 23:26 20 MG Hydrochlorothiazide (Hydrodiuril) 25 mg DAILY 04/21/17 11:00 04/23/17 08:52 25 MG Hydrochlorothiazide (Microzide) 12.5 mg DAILY 04/20/17 09:00 04/21/17 10:47 DC 04/21/17 08:32 12.5 MG Influenza Virus Vaccine Quadrival (Fluarix Quad [id number] Syringe) 0.5 ml ONCE ONCE 04/20/17 09:00 04/20/17 09:01 DC Info (Do NOT chart on this placeholder) 1 each PRN 1X PRN 04/20/17 06:45 Cancel Iron Sucrose 200 mg/Miscellaneous 20 ml @ 240 mls/hr 3X/WEEK 04/22/17 09:00 05/01/17 09:04 04/22/17 09:55 240 MLS/HR Levothyroxine Sodium (Synthroid) 175 mcg DAILYAC 04/20/17 09:00 04/23/17 08:51 175 MCG Losartan Potassium (Cozaar) 50 mg DAILY 04/20/17 09:00 04/23/17 08:52 50 MG Magnesium Oxide (Magnesium Oxide) 400 mg BID 04/22/17 21:00 04/23/17 08:51 400 MG Magnesium Sulfate/ Dextrose 50 ml @ 25 mls/hr 1X ONCE 04/23/17 08:15 04/23/17 10:14 DC 04/23/17 08:54 25 MLS/HR Ondansetron HCl (Zofran) 4 mg PRN Q8HRS PRN 04/19/17 19:30 04/20/17 19:29 DC Oxycodone/ Acetaminophen (Percocet 5/325) 1 tab PRN QID PRN 04/20/17 08:45 Pantoprazole Sodium (Protonix) 40 mg DAILYAC 04/20/17 09:00 04/23/17 08:52 40 MG Potassium Chloride (Klor-Con) 40 meq 1X ONCE 04/23/17 08:15 04/23/17 08:16 DC 04/23/17 08:53 40 MEQ Sodium Chloride 1,000 ml @ 1,000 mls/hr 1X ONCE 04/19/17 16:45 04/19/17 17:44 Cancel Vitamin D (Vitamin D3) 1,000 unit DAILY 04/20/17 09:00 04/23/17 08:51 1,000 UNIT Lab Laboratory Tests Test 04/23/17 06:10 White Blood Count 5.1 x10^3/uL (4.0-11.0) Red Blood Count 3.56 x10^6/uL (3.50-5.40) Hemoglobin 9.3 g/dL (12.0-15.5) Hematocrit 29.3 % (36.0-47.0) Mean Corpuscular Volume 82 fL (79-100) Mean Corpuscular Hemoglobin 26 pg (25-35) Mean Corpuscular Hemoglobin Concent 32 g/dL (31-37) Red Cell Distribution Width 15.1 % (11.5-14.5) Platelet Count 211 x10^3/uL (140-400) Neutrophils (%) (Auto) 68 % (31-73) Lymphocytes (%) (Auto) 20 % (24-48) Monocytes (%) (Auto) 5 % (0-9) Eosinophils (%) (Auto) 6 % (0-3) Basophils (%) (Auto) 1 % (0-3) Neutrophils # (Auto) 3.5 x10^3uL (1.8-7.7) Lymphocytes # (Auto) 1.0 x10^3/uL (1.0-4.8) Monocytes # (Auto) 0.3 x10^3/uL (0.0-1.1) Eosinophils # (Auto) 0.3 x10^3/uL (0.0-0.7) Basophils # (Auto) 0.0 x10^3/uL (0.0-0.2) Sodium Level 142 mmol/L (136-145) Potassium Level 3.3 mmol/L (3.5-5.1) Chloride Level 105 mmol/L (98-107) Carbon Dioxide Level 30 mmol/L (21-32) Anion Gap 7 (6-14) Blood Urea Nitrogen 19 mg/dL (7-20) Creatinine 1.8 mg/dL (0.6-1.0) Estimated GFR (Cockcroft-Gault) 34.5 Glucose Level 101 mg/dL (70-99) Calcium Level 7.2 mg/dL (8.5-10.1) Phosphorus Level 4.0 mg/dL (2.6-4.7) Magnesium Level 1.5 mg/dL (1.8-2.4) Albumin 2.5 g/dL (3.4-5.0) SARY SIMPSON MD Apr 23, 2017 12:08
== END 2017-04-23 16:03 | disposition home or self-care (01) | DRG 101 ==
LOC: ER 15:48 → 1 WEST ICU 18:30 → 4 NORTH 04-21 11:07
PROVIDERS: ADMIT Internal Medicine; ATTEND Internal Medicine
PROC: 02HV33Z Insertion of Infusion Device into Superior Vena Cava, Percutaneous Approach (ICD-10-PCS; principal; 2017-04-20)
PROC: B548ZZA Ultrasonography of Superior Vena Cava, Guidance (ICD-10-PCS; 2017-04-20)
DX: R56.9 Unspecified convulsions (principal); E44.0 Moderate protein-calorie malnutrition; N18.4 Chronic kidney disease, stage 4 (severe); E83.51 Hypocalcemia; E88.09 Other disorders of plasma-protein metabolism, not elsewhere classified; I12.9 Hypertensive chronic kidney disease with stage 1 through stage 4 chronic kidney disease, or unspecified chronic kidney disease; D64.9 Anemia, unspecified; D72.829 Elevated white blood cell count, unspecified; E89.0 Postprocedural hypothyroidism; M19.90 Unspecified osteoarthritis, unspecified site; R74.0 Nonspecific elevation of levels of transaminase and lactic acid dehydrogenase [LDH]; M54.5 Low back pain; K21.9 Gastro-esophageal reflux disease without esophagitis; Z82.49 Family history of ischemic heart disease and other diseases of the circulatory system; Z87.891 Personal history of nicotine dependence; Z90.49 Acquired absence of other specified parts of digestive tract; Z68.39 Body mass index [BMI] 39.0-39.9, adult
CPT/HCPCS: 36415; 36569; 70450; 70553; 71010; 76770; 80048; 80053; 80069; 80076; 81001; 82306; 82310; 82570; 82728; 83540; 83550; 83605; 83735; 83970; 84156; 84439; 84443; 85025; 85045; 85610; 85730; 87641; 90686; 93005; 94250; 94640; 94760; A9585; J0360; J0610; J1756; J7030; J7060; J7613